=== PATIENT | female | born 1960 | race Hispanic/Latino ===

== ENCOUNTER 2023-03-10 16:08 | Emergency (ER) | payer OTHER, SELFPAY ==
[2023-03-10 16:23] VITALS: BP 131/83; PULSE 76; RESP 18; TEMP 36.2; O2SAT 100
--- NOTE | 2023-03-10 16:39 | ED.GENADULT ---
HPI - General Adult General Chief complaint: Upper Respiratory Infection Stated complaint: runny nose, cough Source: patient, RN notes reviewed and old records reviewed Mode of arrival: ambulatory Limitations: no limitations History of Present Illness HPI narrative: [age] year female presents with complaints of cough congestion body aches please start on Tuesday. Patient using Teas to treat symptoms. Patient denies chest pain, shortness of breath, dizziness, weakness, nausea vomiting. patient's daughter present throughout visit. Patient's daughter used to interpret. Patient agreeable with daughter interpreting declined service counter cashier services Related Data Home Medications Medication Instructions Recorded Confirmed alendronate 70 mg tablet 70 mg PO WEEKLY 03/10/23 03/10/23 ergocalciferol (vitamin D2) 1,250 1,250 mcg PO DIRECTED 03/10/23 03/10/23 mcg (50,000 unit) capsule ferrous sulfate 325 mg (65 mg 325 mg PO DIRECTED 03/10/23 03/10/23 iron) tablet (FeroSul) glimepiride 2 mg tablet 2 mg PO DIRECTED 03/10/23 03/10/23 hydrochlorothiazide 25 mg tablet 25 mg PO DIRECTED 03/10/23 03/10/23 lisinopril 40 mg tablet 40 mg PO DIRECTED 03/10/23 03/10/23 lovastatin 20 mg tablet 20 mg PO DIRECTED 03/10/23 03/10/23 metformin 1,000 mg tablet 1,000 mg PO DIRECTED 03/10/23 03/10/23 sitagliptin phosphate 100 mg 100 mg PO DIRECTED 03/10/23 03/10/23 tablet (Januvia) Allergies Allergy/AdvReac Type Severity Reaction Status Date / Time No Known Allergies Allergy Verified 03/10/23 16:24 Review of Systems Constitutional: Constitutional: Reports body ache(s), Reports chills and Denies fever(s) Eyes: Eyes: Reports no additional eye complaints ENT: Reports nasal congestion, Reports nasal discharge and Denies sore throat Cardiovascular: Cardiovascular: Reports no additional cardiovascular complaints Respiratory: Respiratory: Reports chest congestion and Reports cough Neurologic: Reports system reviewed and no additional complaints, except as documented PMFSH Comments At the time of my signature, I reviewed and agree with the nursing past medical, surgical, social, and family history. There is no relevant family history pertinent to the patient complaint. Exam Const: General: cooperative, healthy appearing, no acute distress and well nourished Nutritional Appearance: well nourished Orientation/consciousness: patient oriented x3 Limitations: no limitations HENMT: Head: normal to inspection and normocephalic Ears: external ears normal, TM's normal bilaterally, mastoids normal and Abnormal EAC present Face/Nose/Sinus: normal facial exam Face and sinus: normal facial exam Mouth: Yes Normal oral and palatal mucosa present, Yes oropharynx normal and Yes moist mucous membranes Throat: posterior oropharynx normal, tonsils normal, uvula midline and no uvular edema Eyes: General: appearance normal, both eyes and all related structures Sclera: sclerae normal Pupils: Equal, round and reactive pupils present Resp: Effort & Inspection: normal respiratory effort, able to speak in complete sentences, no audible wheezes, no cough, no respiratory distress and no retractions Auscultation: clear to auscultation bilaterally, no crackles, no rales, no rhonchi and no wheezes Cardio: Rate: regular rate Rhythm: regular rhythm Skin: General skin exam: normal color and no rashes or lesions noted Neuro: General: patient oriented x3 Cranial nerves: Yes Equal, round and reactive pupils present Psych: Appearance: grossly normal Course Course Emergency Course: Some parts of this dictation were generated by voice recognition software and may contain typographical and/or grammatical inaccuracies. Level of Care: Express Care Visit Vital Signs Vital signs: Vital Signs Temperature 97.1 F L 03/10/23 16:23 Pulse Rate 76 03/10/23 16:23 Respiratory Rate 18 03/10/23 16:23 Blood Pressure 131/83 03/10/23 16:23 P
== END 2023-03-10 16:49 | disposition home or self-care (01) ==
PROVIDERS: Emergency Provider Registered Nurse
DX: J10.1 Influenza due to other identified influenza virus with other respiratory manifestations (principal); Z20.822 Contact with and (suspected) exposure to COVID-19; E78.00 Pure hypercholesterolemia, unspecified; I10 Essential (primary) hypertension
CPT/HCPCS: 87426; 87804; 99213; C9803; G0463

== ENCOUNTER 2024-07-30 16:57 | Emergency (ER) | payer OTHER, SELFPAY ==
--- NOTE | 2024-07-30 17:03 | ED_ITS ---
HPI - Wound/Laceration General Chief Complaint: Wound/Laceration Stated Complaint: dog bite right thigh Time Seen by Provider: 07/30/24 17:16 Source: patient and RN notes reviewed Mode of arrival: ambulatory Limitations: no limitations History of Present Illness HPI narrative: 64-year-old female with history of diabetes presents with concern for dog bite. She reports she was getting the mail yesterday in a stray dog ran up to her and bit her on the thigh. She reports the area appears darker around the bite site today. She denies any bleeding or drainage. She does not know the vaccination status of the dog Related Data Home Medications ?Medication ?Instructions ?Recorded ?Confirmed ?Last Taken ?Type alendronate 70 mg tablet 70 mg PO WEEKLY 03/10/23 03/10/23 Unknown History ergocalciferol (vitamin D2) 1,250 1,250 mcg PO DIRECTED 03/10/23 03/10/23 Unknown History mcg (50,000 unit) capsule ferrous sulfate 325 mg (65 mg 325 mg PO DIRECTED 03/10/23 03/10/23 Unknown History iron) tablet (FeroSul) glimepiride 2 mg tablet 2 mg PO DIRECTED 03/10/23 03/10/23 Unknown History hydrochlorothiazide 25 mg tablet 25 mg PO DIRECTED 03/10/23 03/10/23 Unknown History lisinopril 40 mg tablet 40 mg PO DIRECTED 03/10/23 03/10/23 Unknown History lovastatin 20 mg tablet 20 mg PO DIRECTED 03/10/23 03/10/23 Unknown History metformin 1,000 mg tablet 1,000 mg PO DIRECTED 03/10/23 03/10/23 Unknown History sitagliptin phosphate 100 mg 100 mg PO DIRECTED 03/10/23 03/10/23 Unknown History tablet (Januvia) Allergies Allergy/AdvReac Type Severity Reaction Status Date / Time No Known Allergies Allergy Verified 03/10/23 16:24 Review of Systems Review of Systems: CONSTITUTIONAL: Denies malaise, chills, sweats, or fever. SKIN: Reports dog bite to the right thigh MUSCULOSKELETAL: Denies muscle skeletal pain NEUROLOGIC: Denies numbness, weakness All systems reviewed & are unremarkable except as noted in HPI and below PMFSH Comments At time of signature, agree with nursing past medical, surgical, social and family history. There is no relevant family history pertinent to the presenting complaint Exam Narrative: GENERAL: Well-appearing, well-nourished, and in no acute distress. HEAD: Normocephalic EYES: PERRLA, sclera clear ENT: Nares clear. Mucous membranes moist. NECK: Supple. CHEST: No respiratory distress. Speaks in full sentences. HEART: Regular rate and rhythm. No murmur heard. Normal peripheral pulses. EXTREMITIES: RLE has Normal range of motion. No edema. Normal strength and sensation. SKIN: Warm, dry, no visible rash. Approximately 3.5 cm diameter area of ecchymosis with a very superficial, very small abrasion in the center NEURO: Alert and oriented x3. PSYCH: Normal mood and affect Course Course Emergency Course: Patient provided information for the [facility] Department and Animal control to call to coordinate post exposure prophylaxis for rabies because they do not know the vaccination status of the dog that patient was at my home Patient is aware of diagnosis, understands and agrees to treatment plan. Anticipatory guidance given. Patient agrees to follow-up as directed and is aware of reasons to seek care at the emergency department. Portions of this record may have been created with voice recognition software Level of Care: Express Care Visit Vital Signs Vital signs: Vital Signs Temperature 97.3 F L 07/30/24 17:10 Pulse Rate 74 07/30/24 17:10 Respiratory Rate 20 07/30/24 17:10 Blood Pressure 108/76 07/30/24 17:10 Pulse Oximetry 100 07/30/24 17:10 Oxygen Delivery Room Air 07/30/24 17:10 Temperature 97.3 F L 07/30/24 17:10 Pulse Rate 74 07/30/24 17:10 Respiratory Rate 20 07/30/24 17:10 Blood Pressure 108/76 07/30/24 17:10 Pulse Oximetry 100 07/30/24 17:10 Oxygen Delivery Room Air 07/30/24 17:10 Reviewed. MDM - Wound/Laceration MDM Narrative Medical decision making narrative: I evaluated this patient in the express care. History is obtained from patient who is an independent historian and physical exam was performed.? Available medical records were reviewed. ? Exam findings show no acute concerns or changes; patient is non-toxic appearing and is in no distress. ? Differential diagnosis and treatment plan were discussed with the patient. Patient agrees with discussion and after shared medical decision making agrees with plan of care. All questions were answered to the patient's satisfaction. Patient is appropriate for outpatient treatment and follow-up. Differential Diagnosis Differential diagnosis: Likely laceration, abrasion and avulsion of skin Critical Care Time Critical Care Time Critical Care Time: No Discharge Plan Discharge Clinical Impression: Dog bite of extremity Patient Disposition: Home Condition: Stable Instructions: Antibiotic Form, Animal Bite (ED) Additional Instructions: Please follow up with your Primary Care Doctor within 48-72 hours - call for an appointment. Rest and elevate affected area; apply eyes 3-4 times daily for 10- 15 minutes. Take Motrin 600mg every 8 hours with food for pain. Please take Antibiotics as directed. If you experience any worsening redness, swelling, streaking (red lines), fever or chills please go to the ER Please call the health department tomorrow to coordinate post exposure prophylaxis for rabies [facility] [phone] Animal control: [phone] Patient Language: Turkmen Prescriptions: New amoxicillin-pot clavulanate 875-125 mg tablet 1 tablet PO Q12H 10 Days Qty: 20 0RF No Action alendronate 70 mg tablet 70 mg PO WEEKLY glimepiride 2 mg tablet 2 mg PO DIRECTED ferrous sulfate [FeroSul] 325 mg (65 mg iron) tablet 325 mg PO DIRECTED metformin 1,000 mg tablet 1,000 mg PO DIRECTED hydrochlorothiazide 25 mg tablet 25 mg PO DIRECTED ergocalciferol (vitamin D2) 1,250 mcg (50,000 unit) capsule 1,250 mcg PO DIRECTED lovastatin 20 mg tablet 20 mg PO DIRECTED lisinopril 40 mg tablet 40 mg PO DIRECTED Januvia 100 mg tablet 100 mg PO DIRECTED Follow-up/Referrals: [facility] [Primary Care Provider] - Time of Disposition: 17:43
[2024-07-30 17:10] VITALS: BP 108/76; PULSE 74; RESP 20; TEMP 36.3; O2SAT 100
[2024-07-30] MEDS: TETANUS,DIPHTHERIA,AC PERTUSSIS ADULT (0.5 ML) BOOSTRIX IM (17:35)
== END 2024-07-30 17:47 | disposition home or self-care (01) ==
PROVIDERS: Emergency Provider Nurse Practitioner
DX: S70.371A Other superficial bite of right thigh, initial encounter (principal); W54.0XXA Bitten by dog, initial encounter; Z23 Encounter for immunization; I10 Essential (primary) hypertension; E78.00 Pure hypercholesterolemia, unspecified
CPT/HCPCS: 90471; 90715; 99213; G0463

== ENCOUNTER 2024-08-02 17:33 | Emergency (ER) | payer OTHER, SELFPAY ==
--- OUTSIDE RECORDS SUMMARY | 2024-08-02 17:36 | XMS_ITS | Clinical Summary ---
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 Name Role Phone Gay Camargo MD Primary Care Provider Allergies No known active allergies Medications lisinopriL (PRINIVIL,ZESTR IL) 40 mg tablet Take 1 tablet (40 mg total) by mouth daily 9 Active lovastatin (MEVACOR) 20 mg tablet Take 1 tablet (20 mg total) by mouth nightly 4 Active hydroCHLOROthia zide (HYDRODIURIL) 25 mg tablet Take 1 tablet (25 mg total) by mouth daily 9 Active meloxicam (MOBIC) 15 mg tablet Take 1 tablet (15 mg total) by mouth daily 5 Active metFORMIN (GLUCOPHAGE) 1,000 mg tablet Take 1 tablet (1,000 mg total) by mouth 2 (two) times a day 9 Active pioglitazone (ACTOS) 15 mg tablet TAKE ONE TABLET BY MOUTH EVERY MORNING FOR DIABETES 4 Active traMADoL (ULTRAM) 50 mg tablet 4 Active naproxen (NAPROSYN) 500 mg tablet Take 1 tablet (500 mg total) by mouth Active FeroSuL 325 mg (65 mg iron) tablet Take 1 tablet (325 mg total) by mouth daily Active glimepiride (AMARYL) 2 mg tablet Take 1 tablet (2 mg total) by mouth daily Active ergocalciferol (VITAMIN D) 50,000 unit capsule TAKE 1 CAPSULE BY MOUTH ONCE A WEEK DIRECTED Active Invokana 100 mg tablet TAKE ONE TABLET BY MOUTH EVERY MORNING FOR DIABETES Active betamethasone (Celestone Soluspan) 6 mg/mL injection Take 3 mL by injection route. 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 - Breast Imaging [address] [place] [address] [address] [place] [address] Abnormal mammogram Discharge Disposition: Discharge to home or self care 07/12/2024 9:00 AM CDT Office Visit [facility] Surgery [address] [place] [address] [address] [place] [id number] Dara Velasquez, DEEPALI Mass of left breast, unspecified quadrant (Primary Dx) 05/31/2024 Orders Only [facility] Surgery [address] [place] [address] [address] 5 [place] [id number] Dara Velasquez, DEEPALI Mass of left breast, unspecified quadrant (Primary Dx) 05/28/2024 Telephone [facility] [address] [place] [address] [address] [place] [phone] Dara Velasquez, DEEPALI from Last 3 Months Immunizations Immunization Administration Dates Next Due Influenza, Quadrivalent, Split, Intramuscular ,03/14/2015 Influenza, Trivalent, IM (MDV) 03/29/2014 Pneumococcal Polysaccharide PPV23 10/01/2014 Tdap 07/26/2013 Surgical History Surgery Date Site/Laterality Comments COLONOSCOPY Medical History Medical History Date Comments Hypertension Arthritis Family History Medical History Relation Name Comments Diabetes Father Diabetes Mother Hypertension Mother Relation Name Status Comments Father Mother Alive Social History Tobacco Use Types Packs/Day Years Used Date Smoking Tobacco: Never Smokeless Tobacco: Never Tobacco Cessation:Counseling Given: Not Answered Comments Unknown Sex and Gender Information Value Date Recorded Sex Assigned at Not on file Legal Sex Female 12:35 AM CLINIC PHYSICIAN Gender Identity Not on file Sexual Orientation Not on file Obstetrics History Last Filed Vital Signs Vital Sign Reading Time Taken Comments Blood Pressure 121/75 07/12/2024 9:01 AM CDT Pulse 79 07/12/2024 9:01 AM CDT Temperature 36.9 C (98.5 F) 03/01/2016 7:10 PM CLINIC PHYSICIAN Respiratory Rate 18 07/12/2024 9:01 AM CDT Oxygen Saturation 99% 07/12/2024 9:01 AM CDT Inhaled Oxygen Concentration - - Weight 80.3 kg (177 lb) 07/12/2024 9:01 AM CDT Height 157.5 cm (5' 2.01 ) 07/12/2024 9:01 AM CD T Body Mass Index 32.37 07/12/2024 9:01 AM CDT Plan of Treatment Health Maintenance Due Date Last Done Comments Albumin Creatinine Ratio, Urine 1962 Breast Cancer Screening-Mammogram 1962 Cervical Cancer Screening 1962 Colon Cancer Screening-Colonoscopy 1962 Depression Screening 1962 Hemoglobin A1C 1962 Hepatitis C Screening 1962 eGFR 1962 Dilated Eye Exam 1962 Foot Exam 1962 Hepatitis B Screening 1980 Regular Well Visit/Exam 18-64 1980 Zoster Vaccine (1 of 2) 2012 Pneumococcal vaccine <65 (2 of 2 - PCV) 10/02/2015 10/01/2014 Lipid Panel 10/31/2015 10/30/2014 DTaP/Tdap/Td Vaccine (2 - Td or Tdap) 07/27/2023 Covid-19 Vaccine ( - season) 2023, 07/07/2020 Influenza Vaccine (Season Ended) 2024 12/30/2015, 03/14/2015, 03/29/2014 Procedures Procedure Name Priority Date/Time Associated Diagnosis Comments US BREAST LEFT LIMITED Schedule Routine, Read Routine (OP Routine) 07/12/2024 10:15 AM CDT Abnormal mammogram TNI WITH LIPID PANEL Routine 10/30/2014 6:54 PM CDT from Last 3 Months or Most Recently Relevant to Health Maintenance Results * US Breast Left Limited (07/12/2024 10:15 AM CDT) Anatomical Region Laterality Modality Breast Left Ultrasound 07/12/2024 10:3 1 AM CDT Impressions 07/12/2024 10:31 AM CDT Benign left breast imaging. OVERALL FINAL ASSESSMENT: BI-RADS Category 2: Benign. RECOMMENDATION: Annual screening mammography is recommended. Electronically signed by: Domonique Bowman M.D. Narrative 07/12/2024 10:31 AM CDT EXAMINATION: LEFT BREAST ULTRASOUND HISTORY: 63-year-old female with a left breast mass initially evaluated another institution. COMPARISON: Multiple prior studies dating back to 2016 TECHNIQUE: Directed ultrasound evaluation of the LEFT breast was performed. ULTRASOUND FINDINGS: Targeted ultrasound of the left breast 5 o'clock position 5 cm from the nipple demonstrates 2 adjacent simple cysts. This correlates with mammography and is benign. Procedure Note Domonique Bowman MD - 07/12/2024 EXAMINATION: LEFT BREAST ULTRASOUND HISTORY: 63-year-old female with a left breast mass initially evaluated another institution. COMPARISON: Multiple prior studies dating back to 2016 TECHNIQUE: Directed ultrasound evaluation of the LEFT breast was performed. ULTRASOUND FINDINGS: Targeted ultrasound of the left breast 5 o'clock position 5 cm from the nipple demonstrates 2 adjacent simple cysts. This correlates with mammography and is benign. IMPRESSION: Benign left breast imaging. OVERALL FINAL ASSESSMENT: BI-RADS Category 2: Benign. RECOMMENDATION: Annual screening mammography is recommended. Electronically signed by: Domonique Bowman M.D. Yumiko Burnett MEDICAID SPECIALIST IMG MAMMO PROCEDURES Final Result * (ABNORMAL) TNI with LIPID PANEL (10/30/2014 6:54 PM CDT) Troponin I < 0.300 0.000 - 0.300 ng/mL Comment: Reference using HUMZA Chemiluminescence Negative: Repeat in 4-6 hours as indicated. Triglycerides 106 0 - 199 mg/dL Comment:12 hr pc highly tess mmended for Triglyceride Cholesterol 191 0 - 199 mg/dL Comment: Borderline: 200-239 High Risk: >239 HDL Cholesterol 65(H) 40 - 60 mg/dL Comment: Major Risk < 40 mg/dL Moderate Risk 40-60 mg/dL Negative Risk > 60 mg/dL LDL Cholesterol, Calc 105 0 - 130 mg/dL Comment:High Risk > 159 mg/d L Cholesterol/HDL Ratio 2.9 Comment: Cholesterol / HDL Ratio 3.5:1 or less is desirable. Cholesterol / HDL Ratio greater than 5:1 is considered higher risk for developing heart disease. 10/30/2014 6:54 PM CDT 10/30/2014 8:21 PM CDT Narrative [facility] HISTORICAL RESULTS - 10/30/2014 8:52 PM CDT us Nicolas Parsons MD LAB BLOOD ORDERABLES Final Re sult [facility] HISTORICAL RESULTS from Last 3 Months or Most Recently Relevant to Health Maintenance Insurance [facility] Care Teams Ornamental Iron Worker Helper Relationship Specialty Start Date End Date Gay Camargo MD [address] [place] [id number] PCP - General Gastroenterology 04/12/24
--- OUTSIDE RECORDS SUMMARY | 2024-08-02 17:36 | XMS_ITS | Encounter Summary ---
Author Organization [facility] Healthcare Address [address] [place] [address] Care Team Providers Care Offal Separator Name Role Phone Unavailable Primary Care Provider Unavailabl e Reason for Visit * Diagnostic Imaging (Routine) - Pending Review Specialty Diagnoses / Procedures Referred By Shawna curran Referred To Contact Procedures Breast Imaging Diagnostic Outside Reference Dara Velasquez, DEEPALI [address] [address] Phone: tel: fax: Referral ID Status Reason Start Date Expiration Date V isits Requested Visits Authorized [id number] Pending Review 05/03/2024 06/02/2025 1 1 Encounter Details Date Type Department Care Team (Late st Contact Info) Description 03/13/2012 12:05 AM DISHWASHER BUSSER Hospital Encounter [facility] [address] [place] [id number] Social History Tobacco Use Types Packs/Day Years Used Date Smoking Tobacco: Never Smokeless Tobacco: Never Comments Unknown Sex and Gender Information Value Date Recorded Sex Assigned at Not on file Legal Sex Female 12:35 AM DISHWASHER BUSSER Gender Identity Not on file Sexual Orientation Not on file documented as of this encounter Plan of Treatment Not on file documented as of this encounter Procedures Procedure Name Priority Date/Time Associated Diagnosis Comments BREAST IMAGING MG DIAGNOSTIC OUTSIDE REFERENCE Routine 03/13/2012 12:05 AM DISHWASHER BUSSER documented in this encounter Results * Breast Imaging Diagnostic Outside Reference (03/13/2012 12:05 AM DISHWASHER BUSSER) Impressions RAD_MAMMO[facility] - 05/03/2024 9:01 PM DISHWASHER BUSSER These images are for Reference purposes only and have not been reviewed by [facility] Radiology. There will be no report generated by a [facility] Radiologist. Narrative [facility]MO[facility] - 05/03/2024 9:01 PM DISHWASHER BUSSER EXAMINATION: Images For Reference Purposes Only us Dara Velasquez NP IMG MAMMO PROCEDURES Fi nal Result [facility] documented in this encounter Visit Diagnoses Not on filedocumented in this encounter
--- OUTSIDE RECORDS SUMMARY | 2024-08-02 17:36 | XMS_ITS | Continuity of Care Document ---
Author Organization [facility] (Adult Med) Address [address] [place] [address] Care Team Providers Care Programs Director Name Role Phone GAY CAMARGO Primary Care Provider Assessment No assessment recorded. Plan of Treatment Reminders Order Date Submit Date Provider Last Modified By Organization Details Last Modified Time Details Appointments ANY 2024 09:15A Cory Díaz MD Not available Not available Not available ANY 2024 09:00A Cory Camargo MD Not available Not available Not available Lab CBC 2024 025 [place], [address], [address], [place], [address], 08/02/2024 06:47:11 vitamin D, 25-hydrox y, total, serum 2024 025 [place] [facility], [address], [address], [place], [address], 08/02/2024 09:56:34 HbA1c (hemoglob in A1c), blood 2024 025 [place] [id number] In-Office Order, Internal Use Only DO Not Attach Compendium DO Not Attach Compendium, Do Not Delete/merge, [id number] 08/01/2024 16:16:55 CMP, serum or plasma 2024 025 [facility], [address], [place], [address], 08/02/2024 06:47:09 lipid panel, serum 2024 025 [place] [facility], [address], [address], [place], [address], 08/02/2024 06:47:08 Referral None recorded. Procedures None recorded. Surgeries None recorded. Imaging None recorded. Medication Orders Lantus Solostar U-100 Insulin 100 unit/mL (3 mL) subcutane ous pen 2024 [facility] [place], [address], 08/01/2024 10:42:52 alcohol swabs 2024 [facility] [place], [address], 08/01/2024 10:47:33 Patient TargetsNo targets recorded. Patient Instructions Encounter Date Encounter Id Patient Instructions Last Modified By Organization Details Last Modified Time 08/01/2024 [id number] Cuando desea gaby ar de peso: Instrucciones de cuidado - [When You Want to Lose Weight: Care Instructions] [email or web address] Not available 08/01/2024 10:42:35 osteoporosis: instrucciones de cuidado - [osteoporosis: care instructions] [email or web address] Not available 08/01/2024 10:42:35 aprenda acerca d e la diabetes tipo 2 - [learning about type 2 diabetes] [email or web address] Not available 08/01/2024 16:16:55 diabetes tipo 2: instrucciones de cuidado - [type 2 diabetes: care instructions] [email or web address] Not available 08/01/2024 16:16:55 Reason for Referral None Reported. Results Created Date Observation Date Name Description Value Unit Range Abnormal Flag Note LastModifiedBy Organization Detail LastModifiedTime 08/02/1908/01/2024 HbA1c (hemo globi n A1c), blood HbA1c 11.2% Not Available In-Office Order Internal Use Only DO Not Attach Compendium DO Not Attach Compendium, Do Not Delete/merge, [id number] 08/01/2024 10:19:55 Result Notes None recorded. Problems Name Problem SNOMED Code Status Onset Date Resolution Date Notes Provider Name and Address Organization Details Recorded Time Diverticula r disease 444160554 Active 2020 Gay Camargo MD Attn: Frdenadia moss,[address] [facility], [place], [address], [place] [facility] 1 11:21:32 Vitamin D deficiency 96803710 Active 2020 Gay Camargo MD Attn: Cynthia moss,[address] [place], [address], [place] [facility] 1 11:31:42 Screening for malignant neoplasm of breast Active 2020 Gay Camargo MD Attn: Cynthia isa,[address] [place], [address], [place] [facility] 1 11:32:19 Postmenopau skip state 72765852 Active 2021 Gay Camargo MD Attn: Cynthia moss,[address] [facility], [place], [address], [place] [facility] 2 12:10:45 Vitamin D below reference range 348447726 Active 2021 Gay Camargo MD Attn: Cynthia moss,[address] [place], [address], [place] [facility] 2 18:32:05 Osteoporosi s 67869016 Active 2021 Gay Camargo MD Attn: Cynthia moss,[address] [facility], [place], [address], [place] [facility] 2 01:47:03 Pain of left ankle joint 8631677312605 9103 Active 2023 Gay Camargo MD Attn: Cynthia moss,[address] [facility], [place], [address], [place] [facility] 4 10:33:27 Mass of left breast 6482762921554 9103 Active 2023 Gay Camargo MD Attn: Cynthia moss,[address] [place], [address], [place] [facility] 4 01:44:57 Anemia 228653921 Active Cristina Casi, [place], [place] [facility] 6 11:26:01 Peripheral edema 949286356 Active Cristina [place], [place] [facility] 6 11:26:01 Pulmonary embolism 30752538 Active Cristina [place], [place] [facility] 6 11:26:01 Chest pain 71543598 Active Cristina Casi, [place] [facility] 6 11:26:01 Dyspnea 169930288 Active Cristina Casi, [place] [facility] 6 11:26:01 Venous varices 570743769 Active Cristina Casi, [place] [facility] 6 11:26:01 Menorrhagia 727262095 Active Cristina Casi, [place] [facility] 6 11:26:01 Type 2 diabetes mellitus 95617048 Active Nicolas Estrada MD Attn: Cynthia moss,[address] [place], [address], [place] [facility] 6 13:34:51 Essential hypertensio n 33593640 Active Nicolas Estrada MD Attn: Cynthia moss,[address] [place], [address], [place] [facility] 6 13:34:51 Varices Active Cristina [place], [place] [facility] 6 11:26:01 Obesity 479841982 Active Cristina [place], [place] [facility] 6 11:26:01 Hyperlipide oscar 52201900 Active Nicolas Estrada MD Attn: Cynthia moss,[address] [place], [address], [place] [facility] 6 13:34:51 Problem Notes None recorded. Procedures Surgical History Date Name Laterality Status Provider Name and Address Organization Details Recorded Time 03/19/20 24 Endometrial Biopsy completed Robin Leslie MD Attn: Accounting,[address] , [place], [address], [facility] 03/19/2024 17:01:32 01/27/20 24 Date of Last Pap Smear completed Jossie Ozuna [facility] 03/19/2024 15:40:08 11/28/19 24 Left Arthrocentesis Major Joint completed Aubrey Díaz MD [address] [place], [address], [facility] - [facility] 11/28/2023 16:19:51 05/08/19 22 Date of Last Mammogram completed Ana Cristina Drew MA [facility] 01/27/2024 11:00:06 05/08/19 22 Most Recent Mammogram completed Ana Cristina Drew MA [facility] 01/27/2024 11:00:27 Imaging Results None recorded. Procedure Notes None recorded. Medical Equipment None Reported. Allergies No known drug allergies Medications Name Sig Start Date Stop Date Status Note LastModified by Organization Details LastModified Time Miralax 17 gram/dose oral powder In a pitcher, mix entire bottle of Miralax in one 64 ounce bottle of yellow or green Gatorade . Beginnin g at 5:00 PM the evening before the colonosc opy, drink 1 8-ounce glass every 15 minutes until complete d. Drink 4 glasses of water after finishin g this mixture 11/10 completed Not Available Not Available Not Available pioglitaz one 15 mg tablet TAKE ONE TABLET BY MOUTH EVERY MORNING FOR DIABETES 2023 active Not Available Not Available Not Avai lable metformin 500 mg tablet TAKE ONE TABLET BY MOUTH TWICE DAILY DIRECTED 10/10 completed Not Available Not Available Not Available promethaz ine-DM 6.25 mg-15 mg/5 mL oral syrup Take 10 mL every 6 hours by oral route as directed for 10 days. 02/25 completed Not Available Not Available Not Available azithromy poonam 250 mg tablet 02/25 completed Not Available Not Available Not Available Celestone Soluspan 6 mg/mL suspensio n for injection Take 3 mL by injectio n route. 08/27/ 2024 active Not Available Not Available Not Avai lable meloxicam 15 mg tablet TAKE 1 TABLET BY MOUTH ONCE DAILY active Not Available Not Available No t Available alendrona te 70 mg tablet TAKE 1 TABLET BY MOUTH ONCE A WEEK active Not Available Not Available No t Available tramadol 50 mg tablet Take 1 tablet 3 times a day by oral route. 2023 active No benefit from ibuprofe n Not Available Not Available Not Available glimepiri de 2 mg tablet TAKE 1 TABLET BY MOUTH ONCE DAILY IN THE MORNING active Not Available Not Available No t Available warfarin 3 mg tablet Take 1 tablet every day by oral route as directed for 30 days. 10/10 completed Not Available Not Available Not Available famotidin e 20 mg tablet Take 1 tablet twice a day by oral route as directed for 30 days. 02/25 completed Not Available Not Available Not Available benzonata te 100 mg capsule 02/25 completed Not Available Not Available Not Available metformin 1,000 mg tablet TAKE 1 TABLET BY MOUTH TWICE DAILY active Not Available Not Available No t Available warfarin 5 mg tablet 10/10 completed Not Available Not Available Not Available ibuprofen 400 mg tablet Take 1 tablet every 4 hours by oral route as needed. 02/25 completed Not Available Not Available Not Available alcohol swabs Use once daily 2024 active Not Available Not Available Not Avai lable hydrochlo rothiazid e 25 mg tablet TAKE 1 TABLET BY MOUTH ONCE DAILY active Not Available Not Available No t Available ergocalci ferol (vitamin D2) 1,250 mcg (50,000 unit) capsule TAKE 1 CAPSULE BY MOUTH ONCE A WEEK DIRECTED active Not Available Not Available No t Available warfarin 1 mg tablet Take 1 tablet every day by oral route as directed for 30 days. 10/10 completed Not Available Not Available Not Available ibuprofen 600 mg tablet TAKE 1 TABLET BY MOUTH THREE TIMES DAILY WITH MEALS 11/14 completed Not Available Not Available Not Available lovastati n 20 mg tablet TAKE 1 TABLET BY MOUTH ONCE DAILY AT BEDTIME active Not Available Not Available No t Available methylpre dnisolone 4 mg tablets in a dose pack TAKE BY MOUTH DIRECTED ON INSIDE OF PACKAGE 01/26 completed Not Available Not Available Not Available lisinopri l 40 mg tablet TAKE 1 TABLET BY MOUTH ONCE DAILY active Not Available Not Available No t Available naproxen 500 mg tablet TAKE 1 TABLET BY MOUTH TWICE DAILY WITH MEALS 05/11 completed Not Available Not Available Not Available Dulcolax (bisacody l) 5 mg tablet,de layed release At 2:00 PM the day before the colonosc opy, take all 4 tablets of Dulcolax by mouth at one time with 8 ounces of water 11/10 completed Not Available Not Available Not Available Adult Low Dose Aspirin 81 mg tablet,de layed release Take 1 tablet every day by oral route as directed for 30 days. 02/03 completed Not Available Not Available Not Available Januvia 50 mg tablet TAKE 1 TABLET BY MOUTH ONCE DAILY 08/19 completed Not Available Not Available Not Available Januvia 100 mg tablet Take 1 tablet every day by oral route. 08/17 completed Not Available Not Available Not Available FeroSul 325 mg (65 mg iron) tablet TAKE 1 TABLET BY MOUTH ONCE DAILY active Not Available Not Available No t Available Lantus Solostar U-100 Insulin 100 unit/mL (3 mL) subcutane ous pen Inject 10 units every day by subcutan eous route in the morning. 2024 active Not Available Not Available Not Avai lable Truetest Test Strips 05/21 completed Not Available Not Available Not Available Trueresul t Blood Glucose System kit 05/21 completed Not Available Not Available Not Available Invokana 100 mg tablet TAKE ONE TABLET BY MOUTH EVERY MORNING FOR DIABETES 2024 active Not Available Not Available Not Avai lable Metamucil 3.4 gram/5.4 gram oral powder Week 1: Take 1 teaspoon mixed in water by mouth daily Week 2: Take 2 teaspoon s mixed in water by mouth daily Week 3 and afterwar ds: Take 1 Tablespo on mixed in water by mouth daily 11/10 completed Not Available Not Available Not Available ID NOW COVID-19 Test Kit DIRECTED 02/25 completed Not Available Not Available Not Available Vitals Date Recorded Body height Body mass index (BMI) Body weight Heart rate Oxygen saturation Oxygen saturation in Arterial blood by Pulse oximetry Systolic blood pressure Diastolic blood pressure Provider Name and Address Organization Details Last Updated DateTime 04/30/202 5 157.48 cm 32.6 kg/m2 05433.4 4 g 71 /min 99 % 99 % 119 mm[Hg] 80 mm[Hg] Gardenia Rose [place] - [facility], 1928–1983 5 09:58:42 Social History Question Answer Notes LastModified by Organizat ion Details LastModified Time Tobacco Smoking Status Never Smoker Chris Nick blade, [place] 03/29/2014 10:57:48 Do You Have An Advance Directive? No Information n ot available 03/29/2014 What Is Your Level Of Alcohol Consumption? None [email or web address] Information not available 12/19/2014 What Is Your Level Of Caffeine Consumption? Moderate Information not available 03/29/2014 How Much Tobacco Do You Chew? None Information not available 03/29/2014 In The 14 Days Before Symptom Onset, Have You Had Close Contact With A Laboratory-confirm ed COVID-19 While That Case Was Ill? No Information n ot available 02/03/2022 In The 14 Days Before Symptom Onset, Have You Had Close Contact With A Person Who Is Under Investigation For COVID-19 While That Person Was Ill? No Information not available 02/03/2022 Have You Been To An Area Known To Be High Risk For COVID-19? No Information not available 02/03/2022 What Type Of Diet Are You Following? REGULAR Information n ot available 03/29/2014 Which Illicit Or Recreational Drugs Have You Used? 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 No Information not available 10/01/2014 Hard Of Hearing Or Deaf In One Or Both Ears? No [email or web address] Information not available 12/19/2014 Legally Blind In One Or Both Eyes? No Information no t available 12/19/2014 Marital Status Informatio n not available 03/29/2014 Do You Have A Medical Power Of Quality Control Chemist? No Information not available 02/03/2022 What Was The Date Of Your Most Recent Tobacco Screening? 08/01/2024 Information not available 08/01/2024 Performs Monthly Self-breast Exam? Yes Information no t available 03/29/2014 What Is Your Relationship Status? Information not available 04/16/2024 Do You Use Your Seat Belt Or Car Seat Routinely? Yes Information not available 03/19/2024 Seat Belts Used Routinely Yes Information not available 03/29/2014 Smoke Alarm In Home Yes Information not available 03/29/2014 How Much Tobacco Do You Smoke? No Information not available 10/01/2014 General Stress Level Medium Information not available 03/29/2014 Do You Use Sunscreen Routinely? Yes Information not available 03/29/2014 Has Tobacco Cessation Counseling Been Provided? No Information not available 07/08/2022 Do You Or Have You Ever Used Any Other Forms Of Tobacco Or Nicotine? No Information not available 07/08/2022 Sex: Unknown Functional Status Question Answer Note LastModified by [employer]. ion Details LastModified Time What is your exercise level? Occasional Information not available 03/29/2014 Mental Status None recorded. Family History Relationship Description Onset Age of this Age Resolved Age Notes LastModified by Organization Details LastModified Time Father Diabetes mellitus 72 [email or web address] Not available 07/2015 11:10:32 Mother Hypertensive disorder [email or web address] Not available 07/2015 11:10:32 Mother Diabetes mellitus [email or web address] Not available 07/2015 11:10:32 Medical History Condition Response Allergies/Hayfever N Gout N Thyroid Disease N High Blood Pressure Y Emphysema N Depression N COPD N Congenital Heart Disease N NSAID Use Y Pneumonia N Anemia Y Multiple Sclerosis N Lung Mass N Sinusitis N Mental Illness N Diabetes Y Cystic Fibrosis N Obesity N Arthritis N Seizures/Epilepsy N Blood Clot Y Tuberculosis N AIDS/HIV N Acid Reflux (GERD) N Cancer N Stroke N Diverticulitis N Asthma N Hospital Admission other than Y Sleep Apnea N High Cholesterol Y Hepatitis N Liver Disease N Heart Disease N Bronchitis N Pulmonary Embolism Y Hypertension Y Osteoporosis N Kidney Disease N Gynecological History Statement/Question Response Abnormal Pap N Date of Last Mammogram 05/08/2021 On BCP's at Conception? N STIs/STDs N Most Recent Mammogram 05/08/2021 Age at Menarche 16 Current Control Method Menopause Age at First Child 20 If Post Menopausal, Age at Menopause 54 Sexually Active? Y Menses Monthly No Date of Last Pap Smear 01/27/2024 Sexual Problems? N LMP Definite Obstetrics History GPAL:G 3 P 0 0 0 3 Type Value Living 3 Total 3 Immunizations Vaccine Type Date Status Note Provider Nam e and Address Organization Details Recorded Time COVID-19, mRNA, LNP-S, PF, 30 mcg/0.3 mL dose 1 completed Ebonie Re[place], [place] [facility] 09/09/2020 11:42:01 COVID-19, mRNA, LNP-S, PF, 30 mcg/0.3 mL dose 1 completed Ebonie Re[place], [place] [facility] 09/09/2020 11:42:36 Influenza, split virus, quadrivalent, preservative 6 completed Not Available [email or web address] 04/21/2019 02:32:32 Tdap 4 completed [place]oss[place] [facility] 07/31/2014 11:39:23 Tdap 5 completed Gardenia Rose [place], [place] [facility] 08/01/2024 09:51:29 pneumococcal polysaccharide PPV23 5 completed Not Available [email or web address] 04/21/2019 02:39:22 Influenza, split virus, trivalent, preservative 4 completed Not Available [email or web address] 04/21/2019 02:32:02 Influenza, split virus, quadrivalent, preservative 5 completed Not Available [email or web address] 04/21/2019 02:32:11 Past Encounters Encounter ID Performer Location Encounter Start Date Encounter Closed Date Diagnosis/Indication Diagnosis SNOMED-CT Code Diagnosis ICD10 Code Diagnosis Note [id number] MD Omer Manzo (Adult Med) [address] [place] [address] 08/01/2024 09:36:23 08/01/2024 10:48:40 Type 2 diabetes mellitus 16729025 E11.9 Start Lantus Diverticular disease 397 625066 K57.90 Vitamin D deficiency 347 02617 E55.9 Osteoporosis 80414135 M8 1.0 Cont alendronat e Obesity 887557795 E66.9 Health Concerns Section Related Observation LastModified by Organization Detai ls LastModified Time None Recorded Concern Status LastModified by Organization Details LastModified Time None Recorded Payers Encounter Date Sequence Insurance Name Policy Number Policy Valenzuela Covered Member ID Valenzuela Member ID Guarantor Name 08/01/2024 1 [facility] - DOS ON OR AFTER 20 (MEDICAID REPLACEMENT - HMO) Jossie Gonzalez [id number] Jossie Gonzalez Notes Date Note Type Note Provider Name and Address Organization Details Recorded Time 08/01/2024 text/html Translation hotline used.. Here for DM f/u. Was bitten by a dod three days ago and rteceived a Tetanus shot given Gay Camargo MD Attn: Accounting[address] [place], [address], [facility] 08/01/2024 10:48:36 OBGyn Episode No OBEpisode recorded.
--- OUTSIDE RECORDS SUMMARY | 2024-08-02 17:36 | XMS_ITS | Referral Summary ---
Author Organization [address] Address [address] [place] [address] Care Team Providers Care Physical Education Teacher Name Role Phone Gay Camargo MD Primary Care Provider Encounters Date Type Department Care Team Description 07/12/2024 9:30 AM CDT - 07/12/2024 11:59 PM CDT Hospital Encounter [facility] - Breast Imaging [address] [place] [address] [address] [place] [address] Abnormal mammogram Discharge Disposition: Discharge to home or self care 07/12/2024 9:00 AM CDT Office Visit [facility] [address] [place] [address] Floor [address] [place] [address] Dara Velasquez NP Mass of left breast, unspecified quadrant (Primary Dx) 05/31/2024 Orders Only [facility] [address] [place] [address] [address] [place] [address] Dara Velasquez NP Mass of left breast, unspecified quadrant (Primary Dx) 05/28/2024 Telephone [facility] [address] [place] [address] [address] [place] [address] Dara Velasquez NP from Last 3 Months Allergies No known active allergies Medications lisinopriL [...] injection Take 3 mL by injection route. 4 Active alendronate (FOSAMAX) 70 mg tablet Take [...] Diverticular disease 02/24/2021 Vitamin D deficiency 02/24/2021 Immunizations Immunization Administration Dates Next Due Influenza, Quadrivalent, Split, Intramuscular ,03/14/2015 Influenza, Trivalent, IM (MDV) 03/29/2014 Pneumococcal Polysaccharide PPV23 10/01/2014 Tdap 07/26/2013 Social History Tobacco Use Types Packs/Day Years Used Date Smoking Tobacco: Never Smokeless Tobacco: Never Tobacco Cessation:Counseling Given: Not Answered Comments Unknown Sex and Gender Information Value Date Recorded Sex Assigned at Not on file Legal Sex Female 12:35 AM [employer] Gender Identity Not on file Sexual Orientation Not on file Last Filed Vital Signs Vital Sign Reading Time Taken Comments Blood Pressure 121/75 07/12/2024 9:01 AM CDT Pulse 79 07/12/2024 9:01 AM CDT Temperature 36.9 C (98.5 F) 03/01/2016 7:10 PM [employer] Respiratory Rate 18 07/12/2024 9:01 AM CDT Oxygen Saturation 99% 07/12/2024 9:01 AM CDT Inhaled Oxygen Concentration - - Weight 80.3 kg (177 lb) 07/12/2024 9:01 AM CDT Height 157.5 cm (5' 2.01 ) 07/12/2024 9:01 AM CD T Body Mass Index 32.37 07/12/2024 9:01 AM CDT Plan of Treatment Not on file Procedures Procedure Name Priority Date/Time Associated Diagnosis [...] COMPARISON: Multiple prior studies dating back to 2015 TECHNIQUE: Directed ultrasound evaluation of the LEFT [...] signed by: Domonique Bowman M.D. Yumiko Burnett NP IMG MAMMO PROCEDURES Final Result * (ABNORMAL) TNI with LIPID PANEL (10/30/2014 6:54 PM CDT) Troponin I < 0.300 0.000 - 0.300 ng/mL 10/30/2014 8:49 PM [facility] [employer] HISTORICAL RESULTS Comment: Reference using [employer] Chemiluminescence Negative: Repeat in 4-6 hours as indicated. Triglycerides 106 0 - 199 mg/dL 10/30/2014 8:52 PM [facility] [employer] HISTORICAL RESULTS Comment:12 hr pc highly tess mmended for Triglyceride Cholesterol 191 0 - 199 mg/dL 10/30/2014 8:52 PM [employer] HISTORICAL RESULTS Comment: Borderline: 200-239 High Risk: >239 HDL Cholesterol 65(H) 40 - 60 mg/dL 10/30/2014 8:52 PM [facility] [employer] HISTORICAL RESULTS Comment: Major Risk < 40 mg/dL Moderate Risk 40-60 mg/dL Negative Risk > 60 mg/dL LDL Cholesterol, Calc 105 0 - 130 mg/dL 10/30/2014 8:52 PM T [facility] HISTORICAL RESULTS Comment:High Risk > 159 mg/d L Cholesterol/HDL Ratio 2.9 Comment: Cholesterol / HDL Ratio 3.5:1 or less is desirable. Cholesterol / HDL Ratio greater than 5:1 is considered higher risk for developing heart disease. 10/30/2014 6:54 PM CDT 10/30/2014 8:21 PM CDT Narrative [facility] HISTORICAL RESULTS - 10/30/2014 8:52 PM CDT Nicolas Parsons MD LAB BLOOD ORDERABLES Final Re sult [facility] HISTORICAL RESULTS from Last 3 Months or Most Recently Relevant to Health Maintenance Insurance Care Teams Physical Education Teacher Relationship Specialty Start Date End Date Gay Camargo MD [address] [address] PCP - General Gastroenterology 04/12/24
--- OUTSIDE RECORDS SUMMARY | 2024-08-02 17:36 | XMS_ITS | Encounter Summary ---
Author Organization [facility] Healthcare Address [address] [place] [address] Care Team Providers Care Manager Storage Name Role Phone Unavailable Primary Care Provider Unavailabl e Reason for Visit * Diagnostic Imaging (Routine) - Pending Review Specialty Diagnoses / Procedures Referred By Shawna curran Referred To Contact Procedures Breast Imaging Diagnostic Outside Reference Dara Velasquez, DEEPALI [address] [address] Phone: tel: fax: Referral ID Status Reason Start Date Expiration Date V isits Requested Visits Authorized [id number] Pending Review 05/03/2024 06/02/2025 1 1 Encounter Details Date Type Department Care Team (Late st Contact Info) Description 04/07/2015 Hospital Encounter [facility] [address] [place] [address] [phone] Social History Tobacco Use Types Packs/Day Years Used Date Smoking Tobacco: Never Smokeless Tobacco: Never Comments Unknown Sex and Gender Information Value Date Recorded Sex Assigned at Not on file Legal Sex Female 12:35 AM [employer] Gender Identity Not on file Sexual Orientation Not on file documented as of this encounter Plan of Treatment Not on file documented as of this encounter Procedures Procedure Name Priority Date/Time Associated Diagnosis Comments BREAST IMAGING MG DIAGNOSTIC OUTSIDE REFERENCE Routine 04/07/2015 12:00 AM [employer] documented in this encounter Results * Breast Imaging Diagnostic Outside Reference (04/07/2015 12:00 AM [employer]) Impressions RAD_MAMMO_[facility] - 05/03/2024 8:54 PM [employer] These images are for Reference purposes only and have not been reviewed by [facility]. There will be no report generated by a [facility] Radiologist. Narrative [facility]_MAMMO[facility] - 05/03/2024 8:54 PM [employer] EXAMINATION: Images For Reference Purposes Only us Dara Velasquez NP IMG MAMMO PROCEDURES Fi nal Result [facility] documented in this encounter Visit Diagnoses Not on filedocumented in this encounter
--- OUTSIDE RECORDS SUMMARY | 2024-08-02 17:36 | XMS_ITS | Data Portability ---
Author Organization [facility] Address [address] [place] [address] Care Team Providers Care Sausage Stuffer Name Role Phone GAY BARTH Primary Care Provider [phone] Assessment Encounter Date Assessment Date Assessment LastModified by Organization Details LastModified Time 05/10/2024 05/10/2024 Informed her PAP was negative. [email or web address] Not available 05/10/2024 11:55:59 Plan of Treatment Reminders Order Date Submit Date Provider Last Modified By Organization Details Last Modified Time Details Appointments ANY 15 2024 09:15A M Aubrey Díaz MD Not available Not available Not available ANY 15 2024 09:00A M Gay Barth MD Not available Not available Not available Lab CBC 2024 025 IRWIN [facility], [address], [place], [address], 08/02/2024 06:47:11 vitamin D, 25-hydrox y, total, serum 2024 025 IRWIN [facility], [address], [place], [address], 08/02/2024 09:56:34 HbA1c (hemoglob in A1c), blood 2024 025 [email or web address] In-Office Order, Internal Use Only DO Not Attach Compendium DO Not Attach Compendium, Do Not Delete/merge, [id number] 08/01/2024 16:16:55 CMP, serum or plasma 2024 025 IRWIN [facility], [address], [place], [address], 08/02/2024 06:47:09 lipid panel, serum 2024 025 KEVIN [facility], [address], [place], [address], 08/02/2024 06:47:08 biopsy, endometri al 2023 024 [email or web address] [facility], [address], [place], [address], 03/19/2024 17:52:41 Referral None recorded. Procedures None recorded. Surgeries None recorded. Imaging None recorded. Medication Orders Lantus Solostar U-100 Insulin 100 unit/mL (3 mL) subcutane ous pen 2024 025 [facility] [place], [address], 08/01/2024 10:42:52 alcohol swabs 2024 025 [facility], [address] [facility], [place], [address], 08/01/2024 10:47:33 meloxicam 15 mg tablet 2024 025 [facility], [address] [place], [address], 05/11/2024 10:27:07 Patient TargetsNo targets recorded. Patient Instructions Encounter Date Encounter Id Patient Instructions Last Modified By Organization Details Last Modified Time 03/19/2024 [id number] A healthy lifestyle: care instructions [email or web address] Not available 03/19/2024 17:02:03 04/16/2024 [id number] Cuando desea baj ar de peso: Instrucciones de cuidado - [When You Want to Lose Weight: Care Instructions] [email or web address] Not available 04/16/2024 10:55:49 aprenda acerca d e la diabetes tipo 2 - [learning about type 2 diabetes] [email or web address] Not available 04/16/2024 10:55:49 diabetes tipo 2: instrucciones de cuidado - [type 2 diabetes: care instructions] [email or web address] Not available 04/16/2024 10:55:49 aprenda sobre la presi n arterial iban - [learning about high blood pressure] Not available 04/16/2024 10:55:49 colesterol alto: instrucciones de cuidado - [high cholesterol: care instructions] [email or web address] Not available 04/16/2024 10:55:49 08/01/2024 [id number] Cuando desea baj ar de peso: Instrucciones de cuidado - [When You Want to Lose Weight: Care Instructions] [email or web address] Not available 08/01/2024 10:42:35 osteoporosis: instrucciones de cuidado - [osteoporosis: care instructions] [email or web address] Not available 08/01/2024 10:42:35 aprenda acerca d e la diabetes tipo 2 - [learning about type 2 diabetes] [email or web address] Not available 08/01/2024 16:16:55 diabetes tipo 2: instrucciones de cuidado - [type 2 diabetes: care instructions] Not available 08/01/2024 16:16:55 Reason for Referral None Reported. Results Created Date Observation Date Name Description Value Unit Range Abnormal Flag Note LastModifiedBy Organization Detail LastModifiedTime 03/19/20 24 03/22/2024 PATHO DARIUS Mccracken Commen t Mater ial submi tted: . endom etriu m - ENDOM ETRIA L BIOPS Y Not Available [facility] ([facility]) [address] [place], [address], 03/23/2024 07:32:32 03/19/20 24 03/22/2024 PATHO DARIUS Mccracken Commen t Clini misha provi ded ICD-1 0: N93.9 Not Available [facility] ([facility]) [address] [place], [address], 03/23/2024 07:32:32 03/19/20 24 03/22/2024 PATHO LOGY REPOR T . Commen t Diagn osis: ENDOM ETRIA L BIOPS Y: SCANT STRIP S OF ATROP HIC SURFA CE ENDOM ETRIA L EPITH ELIUM . EVALU ATION IS LIMIT ED BY SPARS E TISSU E AND ABSEN CE OF INTAC T GLAND S AND [facility] 03/22 1615 Local Not Available [facility] ([facility]) [address] [facility], [place], [address], 03/23/2024 07:32:32 03/19/20 24 03/22/2024 PATHO LOGY REPOR T . Commen t Elect felicia tang tammy d: . Ilya Lockwood MD, Patho logis t Not Available [facility] ([facility]) [address] [facility], [place], [address], 03/23/2024 07:32:32 03/19/20 24 03/22/2024 PATHO LOGY REPOR T . Commen t Gross descr iptio n: . 1 Conta iner, forma kim-f illed , label ed with patie nt ident ifica tion. ENDOM ETRIA L BIOPS Y: SCANT FRAGM ENT(S ) OF MUCUS AND SOFT MATER IAL MEASU RING 0.2 X 0.2 X 0.1 CM IN AGGRE GATE. FILTE RED AND SUBMI TTED IN CASSE TTE(S ) A1. THE SPECI MEN MAY NOT SURVI VE PROCE SSING . LORI/Dwayne 03/21 0635 Local Not Available [facility] ([facility]) [address] [facility], [place], [address], 03/23/2024 07:32:32 03/19/20 24 03/22/2024 PATHO DARIUS curran CPT . 43738 1 Not Available [facility] ([facility]) [address] [facility], [place], [address], 03/23/2024 07:32:32 08/02/19 25 08/01/2024 HbA1c (hemo globi n A1c), blood HbA1c 11.2% Not Available In-Office Order Internal Use Only DO Not Attach Compendium DO Not Attach Compendium, Do Not Delete/merge, [id number] 08/01/2024 10:19:55 03/05/20 24 03/05/2024 MAMMO , diagn ostic , unila teral No observ ation record ed. [facility] Scheduling [address], [place], [address], 04/06/2024 14:18:44 03/05/20 24 03/05/2024 MAMMO , diagn ostic , unila teral No observ ation record ed. [facility]uling [address], [place], [address], 04/02/2024 15:19:52 04/06/19 25 MAMMO , diagn ostic , unila teral No observ ation record ed. [facility] [address], [place], [address], 05/17/2024 15:19:04 05/17/19 25 MAMMO , scree ramona, digit al, bilat eral No observ ation record ed. [facility] [address], [place], [address], 05/17/2024 15:19:04 05/17/19 25 MAMMO , scree ramona, digit al, bilat eral No observ ation record ed. [email or web address] [facility] [address], [place], [address], 05/17/2024 15:19:04 Result Notes None recorded. Problems Name Problem SNOMED Code Status Onset Date Resolution Date Notes Provider Name and Address Organization Details Recorded Time Diverticula r disease 819834780 Active 2020 Gay Barth MD Attn: Cynthia moss,[address] [facility], [place], [address], [place] [facility] 1 11:21:32 Vitamin D deficiency 73622532 Active 2020 Gay Barth MD Attn: Cynthia moss,[address] [place], [address], [place] [facility] 1 11:31:42 Screening for malignant neoplasm of breast Active 2020 Gay Barth MD Attn: Cynthia moss,[address] [place], [address], [place] [facility] 1 11:32:19 Postmenopau skip state 00876837 Active 2021 Gay Barth MD Attn: Cynthia moss,[address] [place], [address], [place] [facility] 2 12:10:45 Vitamin D below reference range 657623376 Active 2021 Gay Barth MD Attn: Cynthia moss,[address] [place], [address], [place] [facility] 2 18:32:05 Osteoporosi s 76849007 Active 2021 Gay Barth MD Attn: Cynthia moss,[address] [facility], [place], [address], [place] [facility] 2 01:47:03 Pain of left ankle joint 0449116502516 9103 Active 2023 Gay Barth MD Attn: Cynthia moss,[address] [facility], [place], [address], [place] [facility] 4 10:33:27 Mass of left breast 6627072419787 9103 Active 2023 Gay Barth MD Attn: Cynthia moss,[address] [facility], [place], [address], [place] [facility] 4 01:44:57 Anemia 106350213 Active Cristina [place], [place] [facility] 6 11:26:01 Peripheral edema 632036638 Active Cristina [place], [place] [facility] 6 11:26:01 Pulmonary embolism 01461591 Active Cristina [place], [place] [facility] 6 11:26:01 Chest pain 06403960 Active Cristina [place], [place] [facility] 6 11:26:01 Dyspnea 375035313 Active Cristina [place], [place] [facility] 6 11:26:01 Venous varices 702834557 Active Cristina [place], [place] [facility] 6 11:26:01 Menorrhagia 783281693 Active Cristina [place], [place] [facility] 6 11:26:01 Type 2 diabetes mellitus 26744407 Active Nicolas Estrada MD Attn: Cynthia moss,[address] [facility], [place], [address], [place] [facility] 6 13:34:51 Essential hypertensio n 23625242 Active Nicolas Estrada MD Attn: Frednadia moss,[address] [facility], [place], [address], [place] [facility] 6 13:34:51 Varices Active Cristina [place], [place] [facility] 6 11:26:01 Obesity 193458249 Active Cristina [place], [place] [facility] 6 11:26:01 Hyperlipide oscar 98197382 Active Nicolas Estrada MD Attn: Cynthia moss,[address], [place], [address], [facility] - [facility] 6 13:34:51 Problem Notes None recorded. Procedures Surgical History Date Name Laterality Status Provider Name and Address Organization Details Recorded Time 03/19/20 24 Endometrial Biopsy completed Robin Leslie MD Attn: Accounting,[address], [place], [address], [facility] - [facility] 03/19/2024 17:01:32 01/27/20 24 Date of Last Pap Smear completed Jossie Martinezmarisa Ozuna [place] - [facility] 03/19/2024 15:40:08 11/28/19 24 Left Arthrocentesis Major Joint completed Aubrey Díaz MD [address] [place], [address], [facility] - [facility] 11/28/2023 16:19:51 05/08/19 22 Date of Last Mammogram completed Ana Cristina Drew [place] - [facility] 01/27/2024 11:00:06 05/08/19 22 Most Recent Mammogram completed Ana Cristina Drew [place] [facility] 01/27/2024 11:00:27 Imaging Results Imaging Date Name Status LastModified by Organiz ation Details LastModified Time 03/05/2024 MAMMO, diagnostic, unilateral completed [facility] [address] [place], [address], 04/06/2024 14:18:44 03/05/2024 MAMMO, diagnostic, unilateral completed [facility] [address] [place], [address], 04/02/2024 15:19:52 04/06/2024 MAMMO, diagnostic, unilateral completed [facility] [address] [place], [address], 05/17/2024 15:19:04 05/17/2024 MAMMO, screening, digital, bilateral completed [facility] [address] [place], [address], 05/17/2024 15:19:04 05/17/2024 MAMMO, screening, digital, bilateral completed [email or web address] [facility] [address] [facility], [place], [address], 05/17/2024 15:19:04 Procedure Notes None recorded. Medical Equipment None [...] Take 3 mL by injectio n route. 2023 active Not Available Not Available Not [...] Not Available Vitals Date Recorded Body height Provider Name an d Address Organization Details Last Updated DateTime 03/19/2024 157.48 cm Jessica Masters MA [facility] 03/19/2024 15:31:10 Date Recorded Body mass index (BMI) Body weight Heart rate Systolic blood pressure Diastolic blood pressure Provider Name and Address Organization Details Last Updated DateTime 03/19/2024 32.4 kg/m2 89856.28 g 80 /min 115 mm[Hg] 77 mm[Hg] Jossie Ozuna [facility] 15:57:01 Date Recorded Body height Body mass index (BMI) Body weight Heart rate Oxygen saturation Oxygen saturation in Arterial blood by Pulse oximetry Systolic blood pressure Diastolic blood pressure Provider Name and Address Organization Details Last Updated DateTime 5 157.48 cm 32.4 kg/m2 56133.2 8 g 69 /min 98 % 98 % 128 mm[Hg] 80 mm[Hg] Gardenia Rose MA [facility] 5 10:20:58 Date Recorded Body height Body mass index (BMI) Body weight Oxygen saturation Oxygen saturation in Arterial blood by Pulse oximetry Heart rate Body temperature Systolic blood pressure Diastolic blood pressure Provider Name and Address Organization Details Last Updated DateTime 5 157.48 cm 32.2 kg/m2 26872.2 6 g 99 % 99 % 83 /min 97 [degF] 132 mm[Hg] 68 mm[Hg] Ana Cristina Drew MA [facility] 5 11:17:27 Date Recorded Body height Body mass index (BMI) Body weight Heart rate Body temperature Systolic blood pressure Diastolic blood pressure Provider Name and Address Organization Details Last Updated DateTime 5 157.48 cm 31.9 kg/m2 69127.2 3 g 76 /min 98.6 [degF] 104 mm[Hg] 53 mm[Hg] Willard Angulo MA [facility] 5 10:04:46 Date Recorded Body height Body mass index (BMI) Body weight Heart rate Oxygen saturation Oxygen saturation in Arterial blood by Pulse oximetry Systolic blood pressure Diastolic blood pressure Provider Name and Address Organization Details Last Updated DateTime 5 157.48 cm 32.6 kg/m2 28976.4 4 g 71 /min 99 % 99 % 119 mm[Hg] 80 mm[Hg] Gardenia Rose MA [facility] 5 09:58:42 Social History Question Answer Notes LastModified by Organizat ion Details LastModified Time Tobacco Smoking Status Never Smoker Chris [email or web address] [facility] 03/29/2014 10:57:48 Do You Have An Advance Directive? No Information n ot available 03/29/2014 What Is Your Level Of Alcohol Consumption? None [email or web address] Information not available 12/19/2014 What Is Your [...] Or Recreational Drugs Have You Used? 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 No [email or web address] Information not available 10/01/2014 Hard Of Hearing Or Deaf In One Or Both Ears? No [email or web address] Information not available 12/19/2014 Legally Blind In One Or Both Eyes? No [email or web address] Information no t available 12/19/2014 Marital Status Informatio n not available 03/29/2014 Do You Have A Medical Power Of Director Maternal Child? No Information not available 02/03/2022 What Was The Date Of Your Most Recent Tobacco Screening? 08/01/2024 Information not available 08/01/2024 Performs Monthly Self-breast Exam? Yes Information no t available 03/29/2014 What Is Your Relationship Status? Information not available 04/16/2024 Do You Use Your Seat Belt Or Car Seat Routinely? Yes [email or web address] Information not available 03/19/2024 Seat Belts Used Routinely Yes Information not available 03/29/2014 Smoke Alarm In Home Yes Information not available 03/29/2014 How Much Tobacco Do You Smoke? No [email or web address] Information not available 10/01/2014 General Stress Level Medium Information not available 03/29/2014 Do You Use Sunscreen Routinely? Yes Information not available 03/29/2014 Has Tobacco Cessation Counseling Been Provided? No Information not available 07/08/2022 Do You Or Have You Ever Used Any Other Forms Of Tobacco Or Nicotine? No Information not available 07/08/2022 Sex: Unknown Functional Status Question Answer Note LastModified by Organizat ion Details LastModified Time What is your [...] N High Blood Pressure Y Emphysema N NSAID Use Y Congenital Heart Disease N COPD N Depression N Pneumonia N Anemia Y Multiple Sclerosis N Lung Mass N Sinusitis N Mental Illness N Diabetes Y Cystic Fibrosis N Obesity N Seizures/Epilepsy N Arthritis N Blood Clot Y Tuberculosis N AIDS/HIV N Acid Reflux (GERD) N Cancer N Stroke N Diverticulitis N Asthma N Sleep Apnea N Hospital Admission other than Y High Cholesterol Y Hepatitis N Liver Disease [...] mRNA, LNP-S, PF, 30 mcg/0.3 mL dose completed Ebonie Reyes [place], [place] [facility] 09/09/2020 11:42:01 COVID-19, mRNA, LNP-S, PF, 30 mcg/0.3 mL dose 1 completed Ebonie Re[place] [facility] 09/09/2020 11:42:36 Influenza, split virus, quadrivalent, preservative 6 completed Not Available [facility] 04/21/2019 02:32:32 Tdap 4 completed [place]oss[place] [facility] 07/31/2014 11:39:23 Tdap 5 completed Gardenia Rose [place], [place] [facility] 08/01/2024 09:51:29 pneumococcal polysaccharide PPV23 5 completed Not Available [facility] 04/21/2019 02:39:22 Influenza, split virus, trivalent, preservative 4 completed Not Available [facility] 04/21/2019 02:32:02 Influenza, split virus, quadrivalent, preservative 5 completed Not Available [facility] 04/21/2019 02:32:11 Past Encounters Encounter ID Performer Location Encounter Start Date Encounter Closed Date Diagnosis/Indication Diagnosis SNOMED-CT Code Diagnosis ICD10 Code Diagnosis Note [id number] Sanjay Vides MD [address], [place] [address] 03/29/2014 10:43:18 04/02/2014 16:28:55 Type 2 diabetes mellitus 11715851 Essential hypertension 31711511 Varices 192123198 Obesity 559097916 Hyperlipidemia 20191766 [id number] Sanjay Vides MD [facility] [address] [place] [address] 07/31/2014 10:52:53 08/01/2014 17:30:30 Obesity 535968365 stressed diet 1500 meal plan 50-60 minutes of exercise on most days weight loss Type 2 frannie betes mellitus 72604087 Hyperlipidemia 95278626 Essential hypertension 50384735 Varices 843392938 as pat ient voices not tolerating thigh high stockings secondary to tight will try knee highs recommende d elevating legs as much as possible continue Motrin prn Anemia 473898556 Peripheral edema 138379913 elevate legs [id number] Sanjay Vides MD [facility] [address] [place] [address] 10/01/2014 10:18:58 10/03/2014 10:38:57 Type 2 diabetes mellitus 69686468 Obesity 494450703 stress ed diet 1500 meal plan 50-60 minutes of exercise on most days weight loss Hyperlipidemia 55278059 Essential hypertension 75694463 Varices 989282400 Patien t did not tolerate knee highs recommende d elevating legs as much as possible continue Motrin prn Anemia 737002001 Peripheral edema 427517857 elevate legs [id number] Nicolas Estrada MD [facility] (Adult/Fa m Med) [address] [place] [address] 11/11/2014 10:40:05 11/25/2014 13:42:49 Varices 805645516 [id number] Nicolas Estrada MD [facility] (Adult/Fa m Med) [address] [place] [address] 11/18/2014 10:47:38 11/20/2014 12:27:59 Varices 662373999 [id number] Nicolas Estrada MD [facility] (Adult/Fa m Med) [address] [place] [address] 11/25/2014 10:29:19 11/25/2014 16:19:44 [id number] Nicolas Estrada MD [facility] (Adult/Fa m Med) [address] [place] [address] 12/04/2014 10:39:40 12/04/2014 17:13:51 Essential hypertension 43496709 Type 2 frannie betes mellitus 90586935 Obesity 321045082 Peripheral edema 534304854 Pulmonary embolism 20960956 [id number] Nicolas Estrada MD [facility] (Adult/Fa m Med) [address] [place] [address] 12/12/2014 10:07:20 12/12/2014 10:21:23 [id number] Batool Lopez MD [facility] [address] [place] [address] 12/19/2014 10:13:11 12/19/2014 11:51:39 Pulmonary embolism 79289259 Had PE on the right . Hypercoagu lable panel was ordered and not available. Chest pain 74415167 Most likely chest wall in origin. Dyspnea 000920523 Will g et PFTs. [id number] Nicolas Estrada MD [facility] (Adult/Fa m Med) [address] [place] [address] 9 01/03/2015 10:46:10 01/03/2015 12:42:45 [id number] Nicolas Estrada MD [facility] (Adult/Fa m Med) [address] [place] [address] 9 01/06/2015 11:15:05 01/06/2015 18:10:46 Type 2 diabetes mellitus 68948251 E11.9 Essential hypertension 57096918 I10 Obesity 291513544 E66.9 Pulmonary embolism 83397 003 I26.99 [id number] Nicolas Estrada MD [facility] (Adult[facility]Fa m Med) [address] [place] [address] 9 01/17/2015 12:41:09 01/17/2015 13:22:27 Pulmonary embolism 06520463 I26.99 [id number] Nicolas Estrada MD [facility] (Adult/Fa m Med) [address] [place] [address] 9 01/24/2015 10:49:01 01/24/2015 17:57:04 [id number] Nicolas Estrada MD [facility] (Adult/Fa m Med) [address] [place] [address] 9 02/06/2015 10:42:45 02/06/2015 17:58:25 Essential hypertension 65752361 I10 Type 2 frannie betes mellitus 88669238 E11.9 Pulmonary embolism 67234 003 I26.99 [id number] Nicolas Estrada MD [facility] (Adult/Fa m Med) [address] [place] [address] 9 02/18/2015 09:53:22 02/18/2015 16:09:33 Venous varices 955827594 I83.90 [id number] Nicolas Estrada MD [facility] (Adult/Fa m Med) [address] [place] [address] 9 03/10/2015 10:44:31 03/11/2015 11:50:02 Type 2 diabetes mellitus 23792331 E11.9 Essential hypertension 13324215 I10 Pulmonary embolism 18994 003 I26.99 [id number] Nicolas Estrada MD [facility] (Adult/Fa m Med) [address] [place] [address] 03/24/2015 10:42:27 03/26/2015 14:49:23 Venous varices 739636896 I83.90 Pulmonary embolism 33569 003 I26.99 [id number] Keyanna Vargas [facility] [address] [place] [address] 04/07/2015 10:57:04 04/15/2015 11:08:25 Gynecologic examination 84695081 Z01.419 calcium rich foods handout vitamin D exercise weight loss diet Screening for malignant neoplasm of breast 609500763 Z12.39 Obesity 544435984 E66.9 stressed diet 1500 meal plan 50-60 minutes of exercise on most days weight loss [id number] Nicolas Estrada MD [facility] (Adult/Fa m Med) [address] [place] [address] 04/10/2015 10:46:38 04/10/2015 17:55:13 Type 2 diabetes mellitus 10979280 E11.9 Essential hypertension 34258272 I10 [id number] Nicolas Estrada MD [facility] (Adult/Fa m Med) [address] [place] [address] 05/26/2015 11:18:38 05/26/2015 16:21:22 Essential hypertension 76255241 I10 Peripheral edema 8774870 00 R60.9 Type 2 frannie betes mellitus 55840898 E11.9 [id number] Hilario Tucker DO [facility] ([facility]) [address] [place] [address] 06/06/2015 09:50:59 06/09/2015 14:42:07 Menorrhagia 246026438 N92.0 [id number] Nicolas Estrada MD [facility] (Adult/Fa m Med) [address] [place] [address] 06/13/2015 11:03:39 06/17/2015 13:10:16 Type 2 diabetes mellitus 84096996 E11.9 Hyperlipidemia 35147741 E78.5 Essential hypertension 18353162 I10 Pulmonary embolism 49654 003 I26.99 [id number] Nicolas Estrada MD [facility] (Adult/Fa m Med) [address] [place] [address] 9 07/24/2015 15:17:26 07/24/2015 16:03:26 Type 2 diabetes mellitus 29258392 E11.9 Essential hypertension 33436676 I10 Hyperlipidemia 87466220 E78.5 [id number] Nicolas Estrada MD [facility] (Adult/Fa m Med) [address] [place] [address] 9 10/23/2015 15:49:52 10/25/2015 03:47:47 Type 2 diabetes mellitus 09243708 E11.9 Essential hypertension 95333502 I10 [id number] Nicolas Estrada MD [facility] (Adult/Fa m Med) [address] [place] [address] 9 12/30/2015 10:46:19 01/05/2016 15:30:11 Type 2 diabetes mellitus 21295925 E11.9 Hyperlipidemia 87007945 E78.5 Essential hypertension 93234823 I10 [id number] Nicolas Estrada MD [facility] (Adult/Fa m Med) [address] [place] [address] 9 03/05/2016 12:13:01 03/15/2016 10:49:47 Anemia 684311591 D64.9 Type 2 frannie betes mellitus 62411580 E11.9 Hyperlipidemia 87928424 E78.5 Cough 09204925 R05 [id number] Nicolas Estrada MD [facility] (Adult/Fa m Med) [address] [place] [address] 9 03/31/2016 13:44:41 04/01/2016 15:46:38 Essential hypertension 68319615 I10 Obesity 924055680 E66.9 Hyperlipidemia 08533126 E78.5 Diabetes mellitus 001766 09 E11.9 Type 2 frannie betes mellitus 24218955 E11.9 [id number] Nicolas Estrada MD [facility] (Adult/Fa m Med) [address] [place] [address] 9 08/25/2016 15:31:49 09/03/2016 08:43:45 Essential hypertension 77543000 I10 Type 2 franine betes mellitus 53606289 E11.9 Hyperlipidemia 90597808 E78.5 [id number] Nicolas Estrada MD [facility] (Adult/Fa m Med) [address] [place] [address]61[address]109 9 12/07/2016 14:26:20 12/10/2016 09:27:05 Type 2 diabetes mellitus 85142118 E11.9 Obesity 455560538 E66.9 Essential hypertension 95939795 I10 Hyperlipidemia 74486333 E78.5 [id number] Nicolas Estrada MD [facility] (Adult/Fa m Med) [address] [place] [address]01[address]943 9 07/03/2018 15:23:10 07/04/2018 09:12:22 Essential hypertension 88389507 I10 Type 2 frannie betes mellitus 73367277 E11.9 Obesity 295386694 E66.9 [id number] Zabrina Bourne MD [facility] [address] [place] [address]63[address]164 9 08/06/2019 12:32:33 08/07/2019 10:37:24 Exposure to SARS-CoV-2 595953046 Z20.640 [id number] Nicolas Estrada MD [facility] (Adult/Fa m Med) [address] [place] [address]449[address]239 9 10/11/2019 13:18:55 10/12/2019 15:42:27 Essential hypertension 05956130 I10 Hyperlipidemia 42205335 E78.5 Type 2 frannie betes mellitus 37889975 E11.9 Vitamin D deficiency 347 43717 E55.9 Anemia 448438599 D64.9 [id number] MD Omer Manzo (Adult Med) [address] [place] [address] 02/25/2021 10:27:10 02/27/2021 12:59:06 Type 2 diabetes mellitus 13239824 E11.9 Essential hypertension 84595761 I10 Hyperlipidemia 09794860 E78.5 Obesity 137546773 E66.9 Diverticular disease 397 373112 K57.90 Vitamin D deficiency 347 33462 E55.9 Screening for malignant neoplasm of breast 661114450 Z12.39 [id number] MD Omer Manzo (Adult Med) [address] [place] [address]856[address]076 0 05/21/2021 10:49:28 05/22/2021 08:47:14 Essential hypertension 77409071 I10 Hyperlipidemia 51817690 E78.5 Vitamin D deficiency 347 16647 E55.9 Type 2 frannie betes mellitus 90034556 E11.9 Add januvia [id number] MD Omer Manzo (Adult Med) [address] [place] [address]262[address]867 0 08/19/2021 10:52:03 08/19/2021 12:15:42 Type 2 diabetes mellitus 49027870 E11.9 Increase januvia Essential hypertension 47647227 I10 Cont current meds Anemia 037631454 D64.9 Labs Vitamin D deficiency 347 21123 E55.9 Obesity 075457050 E66.9 Diverticular disease 397 582740 K57.90 Hyperlipidemia 66307653 E78.5 [id number] [facility] [address] [place] [address]21[address] 0 01/19/2022 11:08:58 01/20/2022 12:07:02 Essential hypertension 84626729 I10 Cont current meds Type 2 frannie betes mellitus 06114162 E11.9 Increase januvia Hyperlipidemia 89621426 E78.5 Peripheral edema 9167366 00 R60.9 Diverticular disease 397 486031 K57.90 Vitamin D deficiency 347 45501 E55.9 Postmenopausal state 764 33987 Z78.0 [id number] Yary Omer DO [facility] [address] [address] 02/03/2022 13:17:26 02/05/2022 14:24:58 Screening for malignant neoplasm of colon 251450583 Z12.11 CBC and CMP in chart 01/19/2022 Previous colonoscop y 07/23/2010: pancolonic diverticul osis. Repeat in 10 years.Over due 18 months. Diverticul osis of colon 245876238 K57.30 Patient to continue with high fiber diet [id number] MD Omer Manzo (Adult Med) [address] [place] [address] 81354-425 0 07/08/2022 10:05:34 07/12/2022 11:48:59 Obesity 235258872 E66.9 Vitamin D below reference range 401753083 E55.9 Diverticular disease 397 099740 K57.90 Essential hypertension 41618816 I10 Cont current meds Hyperlipidemia 56770076 E78.5 Type 2 frannie betes mellitus 96737637 E11.9 Increase januvia Osteoporosis 25978775 M8 1.0 Cont alendronat e [id number] MD Omer Manzo (Adult Med) [address] [place] [address] 11392-892 0 11/10/2022 09:56:09 11/16/2022 14:38:45 Obesity 304181090 E66.9 Essential hypertension 98286974 I10 Cont current meds Type 2 frannie betes mellitus 85964016 E11.9 Add glimepirid e. Labs on return Vitamin D deficiency 347 00876 E55.9 Screening for malignant neoplasm of breast 608482414 Z12.39 [id number] MD Omer Manzo (Adult Med) [address] [place] [address]294-486 0 02/16/2023 09:52:37 02/23/2023 16:20:32 Essential hypertension 32417807 I10 Cont current meds Hyperlipidemia 87678962 E78.5 Obesity 545074143 E66.9 Osteoporosis 69898166 M8 1.0 Cont alendronat e Type 2 frannie betes mellitus 34954545 E11.9 Add glimepirid e. Labs on return Vitamin D deficiency 347 47342 E55.9 [id number] Gay Barth MD [facility] (Adult Med) [address] [place] [address]689-370 0 06/28/2023 09:43:35 06/29/2023 11:13:15 Essential hypertension 21973859 I10 Cont current meds Hyperlipidemia 69425287 E78.5 Pain of le ft ankle joint 1274809804 6338544 M25.513 [id number] FREDERICK LOCKETT DPM [facility] [place] [address] [place] [address] 2 08/15/2023 09:39:06 08/22/2023 13:59:15 Plantar fasciitis 199000419 M72.2 Our plan is to decrease pain and inflammati on, improve ambulation and to allow the patient to return to 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 Localized edema 46397785 4 R60.0 The patient was educated about the importance of exercise, diet and the need to protect their feet in order to prevent injury or ulceration . Pain in left foot 996416 1201 20674 M79.028 [id number] Gay Barth MD [facility] (Adult Med) [address] [place] [address] 08/17/2023 09:32:28 08/18/2023 12:37:38 Obesity 734749687 E66.9 Type 2 frannie betes mellitus 20814861 E11.9 Add Invokana Pain of le ft ankle joint 6837715220 9062264 M25.572 Vitamin D below reference range 966680327 E55.9 Diverticular disease 397 251712 K57.90 Osteoporosis 68524639 M8 1.0 Cont alendronat e Peripheral edema 4460084 00 R60.9 Venous doppler normal [id number] FREDERICK LOCKETT DPM [facility] [address] [address] 09/19/2023 09:31:24 09/19/2023 10:11:57 Plantar fasciitis 474045079 M72.2 Our plan is to decrease pain and inflammati on, improve ambulation and to 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 Localized edema 60151999 4 R60.0 The patient was educated about the importance of exercise, diet and the need to protect their feet in order to prevent injury or ulceration . Pain in left foot 878153 4488 19813 M79.348 [id number] Aubrey Díaz MD [facility] [address] [place] [address] 10/03/2023 15:22:40 10/04/2023 08:24:47 Osteoarthritis of left knee joint 7313763946 96740 M17.12 Chondromal acia of left patella 2395185174 84725 M22.42 Type 2 frannie betes mellitus 04523367 E11.9 [id number] Gay Barth MD [facility] (Adult Med) [address] [place] [address]270[address]314 0 11/15/2023 09:38:40 11/18/2023 10:41:12 Type 2 diabetes mellitus 36792871 E11.9 Add Invokana Essential hypertension 51792858 I10 Cont current meds Hyperlipidemia 77808497 E78.5 Osteoporosis 44524598 M8 1.0 Cont alendronat e Vitamin D deficiency 347 22690 E55.9 [id number] Aubrey Díaz MD [facility] [address] [place] [address] 11/28/2023 15:02:42 11/30/2023 09:18:52 Osteoarthritis of left knee joint 8131034157 62045 M17.12 Chondromal acia of left patella 7085675697 43840 M22.42 Type 2 frannie betes mellitus 10623250 E11.9 A1C 13.3 Derangemen t of posterior horn of medial meniscus of left knee 4766171806 8624189 M23.102 [id number] Aubrey Díaz MD [facility] [address] [place] [address] 01/02/2024 14:58:06 01/04/2024 15:02:59 Osteoarthritis of left knee joint 5026125096 77242 M17.12 Chondromal acia of left patella 1706618867 51899 M22.42 Type 2 frannie betes mellitus 55420198 E11.9 A1C 13.3 Acute tear of lateral meniscus of left knee 5050868652 1879591 S83.282A NO TKR+ MRMaybe Scope [id number] MD Omer Lainez (Adult Med) [address] [place] [address]47[address] 0 01/27/2024 10:40:16 02/04/2024 10:36:20 Screening for malignant neoplasm of cervix 344485586 Z12.4 If this is normal this will be her last PAP. Venereal d isease screening 283292661 Z11.3 Gynecologi jessica examination abnormal 7265310153 31326 Z01.411 Uterine fullness on bimanual exam. Will order ultrasound . Follow up in three months. Screening for malignant neoplasm of breast 712459318 Z12.39 Exam normal. Has mammogram ordered. [id number] [facility] [address] [place] [address] 0 02/15/2024 09:56:25 02/17/2024 13:45:32 Type 2 diabetes mellitus 89515740 E11.9 Diverticular disease 397 952121 K57.90 Essential hypertension 96142777 I10 Cont current meds Mass of left breast 1224 493942 5532626 N63.20 FNA pending Obesity 343194014 E66.9 [id number] Aubrey Díaz MD [facility] [address] [address] 05/11/2024 09:34:12 05/11/2024 11:52:45 Osteoarthritis of left knee joint 1389649650 37861 M17.12 considerin g injReq mobic Chondromal acia of left patella 9145390321 86846 M22.42 Type 2 frannie betes mellitus 86844164 E11.9 A1C 13.3, 11.4 Acute tear of lateral meniscus of left knee 6448252095 1488856 S83.282A NO TKR+ MRMaybe Scope [id number] Robin Leslie MD Rm 14 OB [address] [facility] [address] [place] [address] 03/19/2024 15:11:51 03/20/2024 08:50:18 Endometrium thickened 225760067 R93.89 --EMB performed Obesity 420476200 E66.9 [id number] Gay Barth MD [facility] (Adult Med) [address] [place] [address] 0 04/16/2024 09:34:50 04/25/2024 13:46:47 Essential hypertension 70386756 I10 Cont current meds Mass of left breast 1224 536981 4224575 N63.20 F/U surgery referral Hyperlipidemia 62391994 E78.5 Obesity 165601221 E66.9 Type 2 frannie betes mellitus 30627804 E11.9 [id number] MD Omer Lainez (Adult Med) [address] [place] [address]765 0 05/10/2024 11:05:42 05/14/2024 15:41:29 Endometrium thickened 311052245 R93.89 Had biopsy and it came back with atrophy. Patient was advised that there are no further concerns and she should let me know if she has any vaginal bleeding. Mass of left breast 1224 987744 3469758 N63.20 Has referral to breast surgeon and she is aware that her appointmen t is May 25. Bacterial vaginosis 4197 71365 N76.0 Informed her that her vaginal swab was positive for Gardnerell a but this just indicates a shift in the bacterial rick. She is not having any vaginal discharge or odor so there is no need to treat. She understand s this and is comfortabl e with this. [id number] Gay Barth MD [facility] (Adult Med) [address] [place] [address]69[address] 0 08/01/2024 09:36:23 08/01/2024 10:48:40 Type 2 diabetes mellitus 83635828 E11.9 Start Lantus Diverticular disease 397 766241 K57.90 Vitamin D deficiency 347 54697 E55.9 Osteoporosis 41092079 M8 1.0 Cont alendronat e Obesity 690789153 E66.9 Health Concerns Section Related Observation LastModified by Organization Detai ls LastModified Time None Recorded Concern Status LastModified by Organization Details LastModified Time None Recorded Advance Directives Directive N: Payers Encounter Date Sequence Insurance Name Policy Number Policy Valenzuela Covered Member ID Valenzuela Member ID Guarantor Name 03/19/2024 2 *SELF PAY* Annette Gonzalez 03/19/2024 1 [facility] ON OR AFTER 10/02/20 (MEDICAID REPLACEMENT - HMO) Jossie Gonzalez [id number] Jossie Gonzalez 04/16/2024 2 *SELF PAY* Annette Gonzalez 04/16/2024 1 [facility] ON OR AFTER 10/02/20 (MEDICAID REPLACEMENT - HMO) Jossie Gonzalez [id number] Jossie Gonzalez 05/10/2024 2 *SELF PAY* Annette Gonzalez 05/10/2024 1 [facility] ON OR AFTER 10/02/20 (MEDICAID REPLACEMENT - HMO) Jossie Gonzalez [id number] Jossie Gonzalez 05/11/2024 1 [facility] ON OR AFTER 04/04/2020 - DUAL ELIGIBLE (MEDICARE REPLACEMENT/AD VANTAGE - HMO) Jossie Gonzalez [id number] Jossie Gonzalez 08/01/2024 1 [facility] ON OR AFTER 10/02/20 (MEDICAID REPLACEMENT - HMO) Jossie Gonzalez [id number] Jossie Gonzalez Notes Date Note Type Note Provider Name and Address Organization Details Recorded Time 03/19/2024 text/html Patient presents as a referral from PCP for an incidentally found thickened endometrium. On ultrasound the endometrium was found to be 7mm, however the patient denies any post-menopausal bleeding. She denies any other complaints. Robin Leslie MD Attn: [address] [place], [address], [facility] 03/19/2024 17:05:32 04/16/2024 text/html Translation hotline used Gay Barth MD Attn: [address]ing[address] [facility], [place], [address], [place] [facility] 04/16/2024 10:56:24 05/10/2024 text/html follow up, doing well, would like to know results of PAP smear, also would like to review endometrial biopsy result and talk about breast surgeon consult Marina Magana MD Attn: [address]ing[address] [place], [address], [place] [facility] 05/10/2024 11:57:33 05/11/2024 text/html KneeReported bypatient.Location :left; anterior; deep Quality:aching; throbbing; deep; frequent; improving Severity:mild Duration:continuou s since onset Timing:gradual; recurrent Context:overuse; atraumatic Alleviating Factors:rest Aggravating Factors:standing; walking; bending/squatting; going from sit to stand; downstairs; daytime; cold weather; damp weather Associated Symptoms:no weakness; no numbness; no tingling; no redness; no warmth; no ecchymosis; no catching/locking; no popping/clicking; no buckling; no instability; no radiation down leg; no drainage; no fever; no chills; no weight loss; no change in bowel/bladder habits;swelling;gr inding Previous Surgery:none Prior Imaging:x ray; MRI Previous Injections:none Previous PT:noneNotes: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 Here for DM f/u. Was bitten by a dod three days ago and rteceived a Tetanus shot given Gay Barth MD Attn: Accounting[address] [place], [address], [facility] 08/01/2024 10:48:36 OBGyn Episode No OBEpisode recorded.
--- OUTSIDE RECORDS SUMMARY | 2024-08-02 17:36 | XMS_ITS | Encounter Summary ---
Author Organization [facility] Healthcare Address [address] [place] [address] Care Team Providers Care Finishing Lab Technician Name Role Phone Unavailable Primary Care Provider Unavailabl e Reason for Visit * Diagnostic Imaging (Routine) - Pending Review Specialty Diagnoses / Procedures Referred By Shawna curran Referred To Contact Procedures Breast Imaging Diagnostic Outside Reference Dara Velasquez, DEEPALI [address] [address] Phone: tel: fax: Referral ID Status Reason Start Date Expiration Date V isits Requested Visits Authorized [id number] Pending Review 05/03/2024 06/02/2025 1 1 Encounter Details Date Type Department Care Team (Late st Contact Info) Description 07/04/2013 Hospital Encounter [facility] [address] [place] [address] [phone] Social History Tobacco Use Types Packs/Day Years Used Date Smoking Tobacco: Never Smokeless Tobacco: Never Comments Unknown Sex and Gender Information Value Date Recorded Sex Assigned at Not on file 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 There will be no report generated by a [facility] Radiologist. Narrative RAD_MAMMO_[facility] - 05/03/2024 8:54 PM GRAIN MERCHANDISING MANAGER EXAMINATION: Images For Reference Purposes Only us Dara Velasquez NP IMG MAMMO PROCEDURES Fi nal Result RAD_MAMMO[facility] documented in this encounter Visit Diagnoses Not on filedocumented in this encounter
--- OUTSIDE RECORDS SUMMARY | 2024-08-02 17:36 | XMS_ITS | Encounter Summary ---
Author Organization [facility] Healthcare Address [address] [place] [address] Care Team Providers Care Wrapper Operator Name Role Phone Unavailable Primary Care Provider Unavailabl e Reason for Visit * Diagnostic Imaging (Routine) - Pending Review Specialty Diagnoses / Procedures Referred By Shawna curran Referred To Contact Procedures Breast Imaging US Outside Reference Dara Velasquez, DEEPALI [address] [address] Phone: tel: fax: Referral ID Status Reason Start Date Expiration Date V isits Requested Visits Authorized [id number] Pending Review 05/03/2024 06/02/2025 1 1 Encounter Details Date Type Department Care Team (Late st Contact Info) Description 03/13/2012 Hospital Encounter 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 Gender Identity Not on file Sexual Orientation Not on file documented as of this encounter Plan of Treatment Not on file documented as of this encounter Procedures Procedure Name Priority Date/Time Associated Diagnosis Comments BREAST IMAGING US OUTSIDE REFERENCE Routine 03/13/2012 12:00 AM INSTRUCTOR HAIRSPRING documented in this encounter Results * Breast Imaging US Outside Reference (03/13/2012 12:00 AM INSTRUCTOR HAIRSPRING) Impressions RAD_MAMMO_[facility] - 05/03/2024 8:55 PM INSTRUCTOR HAIRSPRING These images are for Reference purposes only and have not been reviewed by [facility]. There will be no report generated by a [facility] Radiologist. Narrative RAD_MAMMO_[facility] - 05/03/2024 8:55 PM INSTRUCTOR HAIRSPRING EXAMINATION: Images For Reference Purposes Only us Dara Velasquez NP IMG MAMMO PROCEDURES Fi nal Result RAD_MAMMO[facility] documented in this encounter Visit Diagnoses Not on filedocumented in this encounter
--- OUTSIDE RECORDS SUMMARY | 2024-08-02 17:36 | XMS_ITS | Encounter Summary ---
Author Organization [facility] Healthcare Address [address] [place] [address] Care Team Providers Care Nonprofit Fundraiser Name Role Phone Unavailable Primary Care Provider Unavailabl e Reason for Visit * Diagnostic Imaging (Routine) - Pending Review Specialty Diagnoses / Procedures Referred By Shawna curran Referred To Contact Procedures Breast Imaging Screening Outside Reference Dara Velasquez, DEEPALI [address] [address] Phone: tel: fax: Referral ID Status Reason Start Date Expiration Date V isits Requested Visits Authorized [id number] Pending Review 05/03/2024 06/02/2025 1 1 Encounter Details Date Type Department Care Team (Late st Contact Info) Description 03/06/2018 Hospital Encounter [facility] [address] [place] [address] Social History Tobacco Use Types Packs/Day Years Used Date Smoking Tobacco: Never Smokeless Tobacco: Never Comments Unknown Sex and Gender Information Value Date Recorded Sex Assigned at Not on file Legal Sex Female 12:35 AM VINYL DIPPER Gender Identity Not on file Sexual Orientation Not on file documented as of this encounter Plan of Treatment Not on file documented as of this encounter Procedures Procedure Name Priority Date/Time Associated Diagnosis Comments BREAST IMAGING MG SCREENING OUTSIDE REFERENCE Routine 03/06/2018 12:00 AM VINYL DIPPER documented in this encounter Results * Breast Imaging Screening Outside Reference (03/06/2018 12:00 AM VINYL DIPPER) Impressions RAD_MAMMO_[facility] - 05/03/2024 8:54 PM VINYL DIPPER These images are for Reference purposes only and have not been reviewed by [facility]. There will be no report generated by a [facility] Radiologist. Narrative RAD_MAMMO_[facility] - 05/03/2024 8:54 PM VINYL DIPPER EXAMINATION: Images For Reference Purposes Only us Dara Velasquez NP IMG MAMMO PROCEDURES Fi nal Result RAD_MAMMO_[facility] documented in this encounter Visit Diagnoses Not on filedocumented in this encounter
--- OUTSIDE RECORDS SUMMARY | 2024-08-02 17:36 | XMS_ITS | Encounter Summary ---
Author Organization [facility] Healthcare Address [address] [place] [address] Care Team Providers Care Casting Molder Name Role Phone Unavailable Primary Care Provider Unavailabl e Reason for Visit * Diagnostic Imaging (Routine) - Pending Review Specialty Diagnoses / Procedures Referred By Shawna curran Referred To Contact Procedures Breast Imaging Screening Outside Reference Dara Velasquez, DEEPALI [address] [address] Phone: tel: fax: Referral ID Status Reason Start Date Expiration Date V isits Requested Visits Authorized [id number] Pending Review 05/03/2024 06/02/2025 1 1 Encounter Details Date Type Department Care Team (Late st Contact Info) Description 09/25/2016 Hospital Encounter [facility] [address] [place] [address] [phone] Social History Tobacco Use Types Packs/Day Years Used Date Smoking Tobacco: Never Smokeless Tobacco: Never Comments Unknown Sex and Gender Information Value Date Recorded Sex Assigned at Not on file 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 There will be no report generated by a [facility] Radiologist. Narrative RAD_MAMMO_[facility] - 05/03/2024 8:54 PM LABORATORY MONITOR EXAMINATION: Images For Reference Purposes Only us Dara Velasquez NP IMG MAMMO PROCEDURES Fi nal Result RAD_MAMMO_[facility] documented in this encounter Visit Diagnoses Not on filedocumented in this encounter
[2024-08-02 17:44] VITALS: BP 129/60; PULSE 82; RESP 15; TEMP 36.7; O2SAT 100
--- NOTE | 2024-08-02 18:01 | ED_ITS ---
HPI - Skin/Abscess/Foreign Bdy General Chief complaint: Skin/Abscess/Foreign Body Stated complaint: Pain from 5 day old dog bite Time Seen by Provider: 08/02/24 17:48 Source: patient Mode of arrival: ambulatory Limitations: language barrier (Patient's family member is interpreting) History of Present Illness HPI narrative: Patient presents to the emergency department for a dog bite sustained 3 days ago. Reports bruising and pain to the area. Presents for wound check. Denies fevers, redness, warmth, abnormal drainage. Related Data Home Medications ?Medication ?Instructions ?Recorded ?Confirmed ?Last Taken ?Type alendronate 70 mg tablet 70 mg PO WEEKLY 03/10/23 03/10/23 Unknown History ergocalciferol (vitamin D2) 1,250 1,250 mcg PO DIRECTED 03/10/23 03/10/23 Unknown History mcg (50,000 unit) capsule ferrous sulfate 325 mg (65 mg 325 mg PO DIRECTED 03/10/23 03/10/23 Unknown History iron) tablet (FeroSul) glimepiride 2 mg tablet 2 mg PO DIRECTED 03/10/23 03/10/23 Unknown History hydrochlorothiazide 25 mg tablet 25 mg PO DIRECTED 03/10/23 03/10/23 Unknown History lisinopril 40 mg tablet 40 mg PO DIRECTED 03/10/23 03/10/23 Unknown History lovastatin 20 mg tablet 20 mg PO DIRECTED 03/10/23 03/10/23 Unknown History metformin 1,000 mg tablet 1,000 mg PO DIRECTED 03/10/23 03/10/23 Unknown History sitagliptin phosphate 100 mg 100 mg PO DIRECTED 03/10/23 03/10/23 Unknown History tablet (Januvia) Allergies Allergy/AdvReac Type Severity Reaction Status Date / Time No Known Allergies Allergy Verified 08/02/24 17:34 Review of Systems Review of Systems: CONSTITUTIONAL: Denies fever SKIN: Denies redness or swelling All systems reviewed & are unremarkable except as noted in HPI and below PMFSH Past Medical History Medical History (Updated 08/02/24 @ 18:26 by Krys Torres PA-C) History of hypertension History of diabetes mellitus Social History Social History (Updated 08/02/24 @ 18:26 by Krys Torres PA-C) Substance use: never Exam Narrative: GENERAL: Well-appearing, well-nourished, and in no acute distress. HEAD: Normocephalic, atraumatic. EYES: EOMI. EXTREMITIES: Normal range of motion. No edema or erythema. Small bruise to the right posterior thigh. Compartments are soft. Normal DP pulse SKIN: Warm, dry, no rash. NEURO: No focal deficits. Alert and oriented x3. PSYCH: Normal mood and affect Course Vital Signs Vital signs: Vital Signs Temperature 98.1 F 08/02/24 17:44 Pulse Rate 82 08/02/24 17:44 Respiratory Rate 15 08/02/24 17:44 Blood Pressure 129/60 08/02/24 17:44 Pulse Oximetry 100 08/02/24 17:44 Temperature 98.1 F 08/02/24 17:44 Pulse Rate 82 08/02/24 17:44 Respiratory Rate 15 08/02/24 17:44 Blood Pressure 129/60 08/02/24 17:44 Pulse Oximetry 100 08/02/24 17:44 MDM - Skin/Abscess/Foreign Bdy MDM Narrative Medical decision making narrative: Patient presents emergency department for wound evaluation after a dog bite. There are no signs of infection on exam. Patient is afebrile and nontoxic appearing. Instructed to continue her antibiotics as prescribed. She was given warnings to return to the ER Differential Diagnosis Differential diagnosis: Likely abscess of skin or subcutaneous tissue, cellulitis and other (Contusion, dog bite) Critical Care Time Critical Care Time Critical Care Time: No Discharge Plan Discharge Clinical Impression: Dog bite Patient Disposition: Home Condition: Stable Instructions: Antibiotic Form, Animal Bite (ED) Additional Instructions: Return to the emergency department if you experience fever, redness or swelling of your wound, abnormal drainage from your wound, or any other symptoms that are concerning to you. Clean with mild soap and water daily. Take oral antibiotic as prescribed Follow-up with your primary care doctor Patient Language: Lithuanian Prescriptions: No Action alendronate 70 mg tablet 70 mg PO WEEKLY glimepiride 2 mg tablet 2 mg PO DIRECTED ferrous sulfate [FeroSul] 325 mg (65 mg iron) tablet 325 mg PO DIRECTED metformin 1,000 mg tablet 1,000 mg PO DIRECTED hydrochlorothiazide 25 mg tablet 25 mg PO DIRECTED ergocalciferol (vitamin D2) 1,250 mcg (50,000 unit) capsule 1,250 mcg PO DIRECTED lovastatin 20 mg tablet 20 mg PO DIRECTED lisinopril 40 mg tablet 40 mg PO DIRECTED Januvia 100 mg tablet 100 mg PO DIRECTED amoxicillin-pot clavulanate 875-125 mg tablet 1 tablet PO Q12H 10 Days Qty: 20 0RF Follow-up/Referrals: [facility] [Primary Care Provider] -
--- OUTSIDE RECORDS SUMMARY | 2024-08-02 18:14 | XMS_ITS | Encounter Summary ---
Author Organization [facility] Healthcare Address [address] [place] [address] Care Team Providers Care Exotic Dancer Name Role Phone Unavailable Primary Care Provider Unavailabl e Reason for Visit * Diagnostic Imaging (Routine) - Pending Review Specialty Diagnoses / Procedures Referred By Shawna curran Referred To Contact Procedures Breast Imaging Screening Outside Reference Dara Velasquez, DEEPALI [address] [address] Phone: tel: fax: Referral ID Status Reason Start Date Expiration Date V isits Requested Visits Authorized [id number] Pending Review 05/03/2024 06/02/2025 1 1 Encounter Details Date Type Department Care Team (Late st Contact Info) Description 09/25/[address] [facility] [address] [place] [phone] Social History Tobacco Use Types Packs/Day Years Used Date Smoking Tobacco: Never Smokeless Tobacco: Never Comments Unknown Sex and Gender Information Value Date Recorded Sex Assigned at Not on file Legal Sex Female 12:35 AM SPECIAL NEEDS BABYSITTER Gender Identity Not on file Sexual Orientation [...] CDT) Impressions RAD_MAMMO_BJ - 05/03/2024 8:54 PM SPECIAL NEEDS BABYSITTER These images are for Reference purposes only and have not been reviewed by [facility] Radiology. There will be no report generated by a [facility] Radiologist. Narrative RAD_MAMMO_[facility] - 05/03/2024 8:54 PM SPECIAL NEEDS BABYSITTER EXAMINATION: Images For Reference Purposes Only us Dara Velasquez NP IMG MAMMO PROCEDURES Fi nal Result RAD_MAMMO_[facility] documented in this encounter Visit Diagnoses Not on filedocumented in this encounter
--- OUTSIDE RECORDS SUMMARY | 2024-08-02 18:14 | XMS_ITS | Encounter Summary ---
Author Organization [facility] Healthcare Address [address] [place] [address] Care Team Providers Care Police Judge Name Role Phone Unavailable Primary Care Provider Unavailabl e Reason for Visit * Diagnostic Imaging (Routine) - Pending Review Specialty Diagnoses / Procedures Referred By Shawna curran Referred To Contact Procedures Breast Imaging Screening Outside Reference Dara Velasquez, DEEPALI [address] [address] Phone: tel: fax: Referral ID Status Reason Start Date Expiration Date V isits Requested Visits Authorized [id number] Pending Review 05/03/2024 06/02/2025 1 1 Encounter Details Date Type Department Care Team (Late st Contact Info) Description 03/06/2018 Hospital Encounter [facility]iology [facility] [address] [place] [id number] Social History Tobacco Use Types Packs/Day Years Used Date Smoking Tobacco: Never Smokeless Tobacco: Never Comments Unknown Sex and Gender Information Value Date Recorded Sex Assigned at Not on file Legal Sex Female 12:35 AM GEOSCIENCE TECHNICIAN Gender Identity Not on file Sexual Orientation Not on file documented as of this encounter Plan of Treatment Not on file documented as of this encounter Procedures Procedure Name Priority Date/Time Associated Diagnosis Comments BREAST IMAGING MG SCREENING OUTSIDE REFERENCE Routine 03/06/2018 12:00 AM GEOSCIENCE TECHNICIAN documented in this encounter Results * Breast Imaging Screening Outside Reference (03/06/2018 12:00 AM GEOSCIENCE TECHNICIAN) Impressions RAD_MAMMO_BJ - 05/03/2024 8:54 PM GEOSCIENCE TECHNICIAN These images are for Reference purposes only and have not been reviewed by [facility] Radiology. There will be no report generated by a [facility] Radiologist. Narrative RAD_MAMMO_[facility] - 05/03/2024 8:54 PM GEOSCIENCE TECHNICIAN EXAMINATION: Images For Reference Purposes Only us Dara Velasquez NP IMG MAMMO PROCEDURES Fi nal Result RAD_MAMMO_[facility] documented in this encounter Visit Diagnoses Not on filedocumented in this encounter
--- OUTSIDE RECORDS SUMMARY | 2024-08-02 18:14 | XMS_ITS | Encounter Summary ---
Author Organization [facility] Healthcare Address [address] [place] [address] Care Team Providers Care Last Model Department Supervisor Name Role Phone Unavailable Primary Care Provider Unavailabl e Reason for Visit * Diagnostic Imaging (Routine) - Pending Review Specialty Diagnoses / Procedures Referred By Shawna curran Referred To Contact Procedures Breast Imaging Diagnostic Outside Reference Dara Velasquez, DEEPALI [address] [address] Phone: tel: fax: Referral ID Status Reason Start Date Expiration Date V isits Requested Visits Authorized [id number] Pending Review 05/03/2024 06/02/2025 1 1 Encounter Details Date Type Department Care Team (Late st Contact Info) Description 04/07/2015 Hospital Encounter [facility]iology [facility] [address] [place] [phone] Social History Tobacco Use Types Packs/Day Years Used Date Smoking Tobacco: Never Smokeless Tobacco: Never Comments Unknown Sex and Gender Information Value Date Recorded Sex Assigned at Not on file Legal Sex Female 12:35 AM HEAD OF MERCHANDISE BUYING Gender Identity Not on file Sexual Orientation Not on file documented as of this encounter Plan of Treatment Not on file documented as of this encounter Procedures Procedure Name Priority Date/Time Associated Diagnosis Comments BREAST IMAGING MG DIAGNOSTIC OUTSIDE REFERENCE Routine 04/07/2015 12:00 AM HEAD OF MERCHANDISE BUYING documented in this encounter Results * Breast Imaging Diagnostic Outside Reference (04/07/2015 12:00 AM HEAD OF MERCHANDISE BUYING) Impressions RAD_MAMMO_BJ - 05/03/2024 8:54 PM HEAD OF MERCHANDISE BUYING These images are for Reference purposes only and have not been reviewed by [facility] Radiology. There will be no report generated by a [facility] Radiologist. Narrative RAD_MAMMO_[facility] - 05/03/2024 8:54 PM HEAD OF MERCHANDISE BUYING EXAMINATION: Images For Reference Purposes Only us Dara Velasquez NP IMG MAMMO PROCEDURES Fi nal Result RAD_MAMMO_[facility] documented in this encounter Visit Diagnoses Not on filedocumented in this encounter
--- OUTSIDE RECORDS SUMMARY | 2024-08-02 18:15 | XMS_ITS | Encounter Summary ---
Author Organization [facility] Healthcare Address [address] [place] [address] Care Team Providers Care Blood Tester Name Role Phone Unavailable Primary Care Provider Unavailabl e Reason for Visit * Diagnostic Imaging (Routine) - Pending Review Specialty Diagnoses / Procedures Referred By Shawna curran Referred To Contact Procedures Breast Imaging US Outside Reference Dara Velasquez, DEEPALI [address] [address] Phone: tel: fax: Referral ID Status Reason Start Date Expiration Date V isits Requested Visits Authorized [id number] Pending Review 05/03/2024 06/02/2025 1 1 Encounter Details Date Type Department Care Team (Late st Contact Info) Description 03/13/2012 Hospital Encounter [facility]iology [facility] [address] [place] [phone] Social History Tobacco Use Types Packs/Day Years Used Date Smoking Tobacco: Never Smokeless Tobacco: Never Comments Unknown Sex and Gender Information Value Date Recorded Sex Assigned at Not on file Legal Sex Female 12:35 AM ELECTRIC RELAY TESTER Gender Identity Not on file Sexual Orientation Not on file documented as of this encounter Plan of Treatment Not on file documented as of this encounter Procedures Procedure Name Priority Date/Time Associated Diagnosis Comments BREAST IMAGING US OUTSIDE REFERENCE Routine 03/13/2012 12:00 AM ELECTRIC RELAY TESTER documented in this encounter Results * Breast Imaging US Outside Reference (03/13/2012 12:00 AM ELECTRIC RELAY TESTER) Impressions RAD_MAMMO_BJ - 05/03/2024 8:55 PM ELECTRIC RELAY TESTER These images are for Reference purposes only and have not been reviewed by [facility] Radiology. There will be no report generated by a [facility] Radiologist. Narrative RAD_MAMMO_[facility] - 05/03/2024 8:55 PM ELECTRIC RELAY TESTER EXAMINATION: Images For Reference Purposes Only us Dara Velasquez NP IMG MAMMO PROCEDURES Fi nal Result RAD_MAMMO_[facility] documented in this encounter Visit Diagnoses Not on filedocumented in this encounter
--- OUTSIDE RECORDS SUMMARY | 2024-08-02 18:15 | XMS_ITS | Clinical Summary ---
Author Organization [address] Address [address] [place] [phone] Care Team Providers Care Delinquency Prevention Social Worker Name Role Phone Gay Camargo MD Primary [...] [facility] - [facility] [address] [place] [address] Floor 8 [place] [address] Abnormal mammogram Discharge Disposition: Discharge to home or self care 07/12/2024 9:00 AM CDT Office Visit [facility] [address] [place] [address] [address] [place] [phone] Dara Velasquez, DEEPALI Mass of left breast, unspecified quadrant (Primary Dx) 05/31/2024 Orders Only [facility] [address] [place] [address] [address] [place] [phone] Dara Velasquez, DEEPALI Mass of left breast, unspecified quadrant (Primary Dx) 05/28/2024 Telephone [facility] [address] [place] [address] [address] [place] [address] Dara Velasquez, DEEPALI from Last [...] on file Legal Sex Female 12:35 AM GUEST SERVICE HOST Gender Identity Not on file Sexual Orientation Not on file Obstetrics History Last Filed Vital Signs Vital Sign Reading Time Taken Comments Blood Pressure 121/75 07/12/2024 9:01 AM CDT Pulse 79 07/12/2024 9:01 AM CDT Temperature 36.9 C (98.5 F) 03/01/2016 7:10 PM GUEST SERVICE HOST Respiratory Rate 18 07/12/2024 9:01 AM CDT [...] signed by: Domonique Bowman M.D. Yumiko Burnett TECHNICAL SALES REPRESENTATIVE IMG MAMMO PROCEDURES Final Result * (ABNORMAL) TNI with LIPID PANEL (10/30/2014 6:54 PM CDT) Troponin I < 0.300 0.000 - 0.300 ng/mL 10/30/2014 8:49 PM T [facility] HISTORICAL RESULTS Comment: Reference using [employer] Chemiluminescence Negative: Repeat in 4-6 hours as indicated. Triglycerides 106 0 - 199 mg/dL 10/30/2014 8:52 PM CDT [facility] HISTORICAL RESULTS Comment:12 hr pc highly tess mmended for Triglyceride Cholesterol 191 0 - 199 mg/dL 10/30/2014 8:52 PM T [facility] HISTORICAL RESULTS Comment: Borderline: 200-239 High Risk: >239 HDL Cholesterol 65(H) 40 - 60 mg/dL 10/30/2014 8:52 PM T [facility] HISTORICAL RESULTS Comment: Major Risk < 40 mg/dL Moderate Risk 40-60 mg/dL Negative Risk > 60 mg/dL LDL Cholesterol, Calc 105 0 - 130 mg/dL 10/30/2014 8:52 PM T [facility] HISTORICAL RESULTS Comment:High Risk > 159 mg/d L Cholesterol/HDL Ratio 2.9 10/30/2014 8:52 PM T [facility] HISTORICAL RESULTS Comment: Cholesterol / HDL Ratio 3.5:1 or less is desirable. Cholesterol / HDL Ratio greater than 5:1 is considered higher risk for developing heart disease. 10/30/2014 6:54 PM CDT 10/30/2014 8:21 PM CDT Narrative [facility] HISTORICAL RESULTS - 10/30/2014 8:52 PM CDT us Nicolas Parsons MD LAB BLOOD ORDERABLES Final Re sult [facility] HISTORICAL RESULTS from Last 3 Months or Most Recently Relevant to Health Maintenance Insurance [facility] Care Teams Delinquency Prevention Social Worker Relationship Specialty Start Date End Date Gay Camargo MD [address] [place] [id number] PCP - General Gastroenterology 04/12/24
--- OUTSIDE RECORDS SUMMARY | 2024-08-02 18:15 | XMS_ITS | Encounter Summary ---
Author Organization [facility] Healthcare Address [address] [place] [address] Care Team Providers Care Director Business Name Role Phone Unavailable Primary Care Provider Unavailabl e Reason for Visit * Diagnostic Imaging (Routine) - Pending Review Specialty Diagnoses / Procedures Referred By Shawna curran Referred To Contact Procedures Breast Imaging Diagnostic Outside Reference Dara Velasquez, DEEAPLI [address] [address] Phone: tel: fax: Referral ID Status Reason Start Date Expiration Date V isits Requested Visits Authorized [id number] Pending Review 05/03/2024 06/02/2025 1 1 Encounter Details Date Type Department Care Team (Late st Contact Info) Description 03/13/2012 12:05 AM POCKET CLOSER Hospital Encounter [facility] Radiology [facility] [address] [place] [id number] Social History Tobacco Use Types Packs/Day Years Used Date Smoking Tobacco: Never Smokeless Tobacco: Never Comments Unknown Sex and Gender Information Value Date Recorded Sex Assigned at Not on file Legal Sex Female 12:35 AM POCKET CLOSER Gender Identity Not on file Sexual Orientation Not on file documented as of this encounter Plan of Treatment Not on file documented as of this encounter Procedures Procedure Name Priority Date/Time Associated Diagnosis Comments BREAST IMAGING MG DIAGNOSTIC OUTSIDE REFERENCE Routine 03/13/2012 12:05 AM POCKET CLOSER documented in this encounter Results * Breast Imaging Diagnostic Outside Reference (03/13/2012 12:05 AM POCKET CLOSER) Impressions RAD_MAMMO_BJ - 05/03/2024 9:01 PM POCKET CLOSER These images are for Reference purposes only and have not been reviewed by [facility] Radiology. There will be no report generated by a [facility] Radiologist. Narrative RAD_MAMMO_[facility] - 05/03/2024 9:01 PM POCKET CLOSER EXAMINATION: Images For Reference Purposes Only us Dara Velasquez NP IMG MAMMO PROCEDURES Fi nal Result RAD_MAMMO_[facility] documented in this encounter Visit Diagnoses Not on filedocumented in this encounter
--- OUTSIDE RECORDS SUMMARY | 2024-08-02 18:15 | XMS_ITS | Clinical Summary ---
Author Organization [facility] Address [address] [place] [address] Care Team Providers Care Bomb Squad Officer Name Role Phone Nicolas Estrada MD Primary Care Provider Allergies No known active allergies Medications hydrochlorothiazid e 25 MG tablet 07/03/2018 Acti ve metFORMIN 1000 MG tablet 07/03/2018 Active lisinopril 40 MG tablet 07/03/2018 Active Family History Medical History Relation Comments Diabetes Father Hypertension Father Diabetes Mother Hypertension Mother Relation Status Comments Father Mother Social History Tobacco Use Types Packs/Day Years Used Date Smoking Tobacco: Never Smokeless Tobacco: Never Alcohol Use Standard Drinks/Week Comments Yes 0 (1 standard drink = 0.6 oz pur e alcohol) rare Comments No Sex and Gender Information Value Date Recorded Sex Assigned at Not on file Legal Sex Female 5:46 PM CDT Gender Identity Not on file Sexual Orientation Not on file Last Filed Vital Signs Vital Sign Reading Time Taken Comments Blood Pressure 154/94 07/21/2018 8:21 AM CDT Pulse 86 07/21/2018 8:21 AM CDT Temperature 36.3 C (97.4 F) 07/21/2018 8:21 AM CDT Respiratory Rate 20 07/21/2018 8:21 AM CDT Oxygen Saturation 99% 07/21/2018 8:21 AM CDT Inhaled Oxygen Concentration - - Weight 84.8 kg (187 lb) 07/21/2018 8:21 AM CDT Height 157.5 cm (5' 2 ) 07/21/2018 8:21 AM CDT Body Mass Index 34.2 07/21/2018 8:21 AM CDT Plan of Treatment Health Maintenance Due Date Last Done Comments Cervical Cancer Screening Pa p Smear (Age 30 to 64) Every 3 Years 1962 Colorectal Cancer Screening Colonoscopy (10 Years) 1962 Annual Physical 1965 Hepatitis C 1980 DTaP, Tdap and Td Vaccines ( 1 - Tdap) 1981 Cervical Cancer Screening Jimmie p with HPV Testing (Age 30 to 64) Every 5 Years 1992 Cervical Cancer Screening with HPV 1992 Mammogram Screening 2002 Pneumococcal Vaccine: 50+ Ye ars (1 of 1 - PCV) 2012 Zoster Vaccines (1 of 2) 2012 COVID-19 Vaccine (1 - 2023-2 5 season) 2023 RSV Immunization or 60+ Years (1 - 1-dose 75+ series) 2037 Meningococcal B Vaccine Aged Out No l onger eligible based on patient's age to complete this topic Meningococcal Vaccine Aged Out No lillie mary anne eligible based on patient's age to complete this topic RSV Immunizations Under 20 Months Aged Out No longer eligible based on patient's age to complete this topic Insurance Care Teams Bomb Squad Officer Relationship Specialty Start Date End Date Nicolas Estrada MD PCP - General INTERNAL MEDICINE 07/21/18
--- OUTSIDE RECORDS SUMMARY | 2024-08-02 18:15 | XMS_ITS | Referral Summary ---
Author Organization [address] Address [address] [place] [phone] Care Team Providers Care Sliver Lap Machine Tender Name Role Phone Gay Camargo MD Primary Care Provider Encounters Date Type Department Care Team Description 07/12/2024 9:30 AM CDT - 07/12/2024 11:59 PM CDT Hospital Encounter [facility] - Breast Imaging [address] [place] [address] Floor 8 [place] [address] Abnormal mammogram Discharge Disposition: Discharge to home or self care 07/12/2024 9:00 AM CDT Office Visit [facility] [address] [place] [address] Floor [address] [place] [address] Dara Velasquez NP Mass of left breast, unspecified quadrant (Primary Dx) 05/31/2024 Orders Only [facility] [address] [place] [address] [address] [place] [address] Draa Velasquez NP Mass of left breast, unspecified quadrant (Primary Dx) 05/28/2024 Telephone [facility] [address] [place] [address] [address] [place] [address] Dara Velasquez NP from Last [...] on file Legal Sex Female 12:35 AM ASSISTANT HEALTH EDUCATOR Gender Identity Not on file Sexual Orientation Not on file Last Filed Vital Signs Vital Sign Reading Time Taken Comments Blood Pressure 121/75 07/12/2024 9:01 AM CDT Pulse 79 07/12/2024 9:01 AM CDT Temperature 36.9 C (98.5 F) 03/01/2016 7:10 PM ASSISTANT HEALTH EDUCATOR Respiratory Rate 18 07/12/2024 9:01 AM CDT [...] - 0.300 ng/mL 10/30/2014 8:49 PM T [employer] HISTORICAL RESULTS Comment: Reference using [employer] Chemiluminescence Negative: Repeat in 4-6 hours as indicated. Triglycerides 106 0 - 199 mg/dL 10/30/2014 8:52 PM T [employer] HISTORICAL RESULTS Comment:12 hr pc highly tess mmended for Triglyceride Cholesterol 191 0 - 199 mg/dL 10/30/2014 8:52 PM T [employer] HISTORICAL RESULTS Comment: Borderline: 200-239 High Risk: >239 HDL Cholesterol 65(H) 40 - 60 mg/dL 10/30/2014 8:52 PM [facility] [employer] HISTORICAL RESULTS Comment: Major Risk < 40 mg/dL Moderate Risk 40-60 mg/dL Negative Risk > 60 mg/dL LDL Cholesterol, Calc 105 0 - 130 mg/dL 10/30/2014 8:[address] [facility] [employer] HISTORICAL RESULTS Comment:High Risk > 159 mg/d L Cholesterol/HDL Ratio 2.9 10/30/2014 8:52 PM CDT [facility] HISTORICAL RESULTS Comment: Cholesterol / HDL Ratio 3.5:1 or less is desirable. Cholesterol / HDL Ratio greater than 5:1 is considered higher risk for developing heart disease. 10/30/2014 6:54 PM CDT 10/30/2014 8:21 PM CDT Narrative [facility] HISTORICAL RESULTS - 10/30/2014 8:52 PM CDT Nicolas Parsons MD LAB BLOOD ORDERABLES Final Re sult [facility] HISTORICAL RESULTS from Last 3 Months or Most Recently Relevant to Health Maintenance Insurance Care Teams Sliver Lap Machine Tender Relationship Specialty Start Date End Date Gay Camargo MD [phone] [address] PCP - General Gastroenterology 04/12/24
--- OUTSIDE RECORDS SUMMARY | 2024-08-02 18:15 | XMS_ITS | Encounter Summary ---
Author Organization [facility] Address [address] [place] [address] Care Team Providers Care Museum Technician Name Role Phone Unavailable Primary Care Provider Unavailabl e Reason for Visit * Diagnostic Imaging (Routine) - Pending Review Specialty Diagnoses / Procedures Referred By Shawna curran Referred To Contact Procedures Breast Imaging Diagnostic Outside Reference Dara Velasquez, DEEPALI [address] [address] Phone: tel: fax: Referral ID Status Reason Start Date Expiration Date V isits Requested Visits Authorized [id number] Pending Review 05/03/2024 06/02/2025 1 1 Encounter Details Date Type Department Care Team (Late st Contact Info) Description 07/04/2013 Hospital Encounter [facility] [address] [place] [address] [phone] Social History Tobacco Use Types Packs/Day Years Used Date Smoking Tobacco: Never Smokeless Tobacco: Never Comments Unknown Sex and Gender Information Value Date Recorded Sex Assigned at Not on file Legal Sex Female 12:35 AM VEHICLE DAMAGE APPRAISER Gender Identity Not on file Sexual Orientation [...] CDT) Impressions RAD_M[facility]MO[facility] - 05/03/2024 8:54 PM VEHICLE DAMAGE APPRAISER These images are for Reference purposes only and have not been reviewed by [facility]. There will be no report generated by a [facility] Radiologist. Narrative [facility] - 05/03/2024 8:54 PM VEHICLE DAMAGE APPRAISER EXAMINATION: Images For Reference Purposes Only us Dara Velasquez NP IMG MAMMO PROCEDURES Fi nal Result [facility] documented in this encounter Visit Diagnoses Not on filedocumented in this encounter
== END 2024-08-02 18:22 | disposition home or self-care (01) ==
LOC: ANHED 18:12
PROVIDERS: Emergency Provider Physician Assistant
DX: S70.11XD Contusion of right thigh, subsequent encounter (principal); W54.0XXD Bitten by dog, subsequent encounter
CPT/HCPCS: 99282

== ENCOUNTER 2024-09-27 14:49 | Outpatient (CLI) | payer OTHER, SELFPAY ==
--- NOTE | ~2024-09-27 | XR_ITS ---
XR facial bones min 3V Ordering provider: Gay Camargo, History: . headache, PAIN ON RT SIDE OF FACE RADIATING TO CHEST . Comparison: None. FINDINGS: BONES: No acute fracture as visualized. PARANASAL SINUSES: Well aerated. SOFT TISSUES: Normal. IMPRESSION: No visualized acute facial fracture. Reviewed, dictated and finalized at location A.
== END 2024-09-27 14:50 | disposition home or self-care (01) ==
PROVIDERS: PCP Internal Medicine Gastroenterology; Visit Provider Internal Medicine Gastroenterology
DX: R51.9 Headache, unspecified (principal)
CPT/HCPCS: 70150